=== PATIENT | male | born 1960 | race American Indian/Alaskan Native ===

== ENCOUNTER 2018-04-25 21:38 | Inpatient (IN) | payer OTHER ==
[2018-04-25] MEDS ORDERED: NACL 0.9% 1000 ML 2,000 ML IV ONE (21:53)
[2018-04-25] MEDS ORDERED: PEPCID IV ONE (21:53)
--- NOTE | 2018-04-25 21:54 | Emergency Department Report ---
ED General Adult HPI - General Chief complaint: Seizure Stated complaint: SEIZURE Time Seen by Provider: 04/25/18 21:44 Source: patient, family, EMS (ems notes not available at time of chart dictation), RN notes reviewed Mode of arrival: Stretcher Limitations: Other (patient has incomplete recollection of the events that happened today.) - History of Present Illness Initial comments: This is a 57-year-old gentleman. The patient is unknown to this provider previously. He can't recall the name of his primary care doctor. He has a history of hypertension. Patient was at home today, and apparently had an episode of syncope, which was followed by a seizure. This was seen by his family in partial contacts. They did not see the complete event. Patient reports no headache, but indicates that his head feels funny, denies neck pain, chest pain, reports abdominal pain, which is epigastric, and is not able to otherwise indicates the qualitative nature of the pain, and indicates no radiation, exacerbation or relieving factors. He denies hematemesis, bright red blood per rectum, and denies DVT, pulmonary embolus risk factors. He denies midline neck pain, chest pain, lower extremity pain, weakness, numbness. He feels quite anxious. As far the patient can recall, this is never happened to him. As per family, he was outside the bedroom door, they heard the fall, and sore him seizing. They do not know how long the seizure lasted for. No indication of intoxicants as per family and patient. -: Gradual, Sudden Location: abdomen (abdominal pain has been present for a day or 2.) Radiation: other Severity scale (0 -10): 0 Quality: other Consistency: other Improves with: other Worsens with: other Associated Symptoms: confusion, malaise, seizure, syncope, weakness. denies: chest pain, cough, diaphoresis, fever/chills, headaches, loss of appetite, nausea/vomiting, rash, shortness of breath - Related Data Allergies Allergy/AdvReac Type Severity Reaction Status Date / Time No Known Allergies Allergy Unverified 04/25/18 21:45 ED Review of Systems ROS: Stated complaint: SEIZURE Other details as noted in HPI Constitutional: malaise. denies: fever Eyes: denies: eye discharge ENT: denies: epistaxis Respiratory: denies: cough Cardiovascular: syncope. denies: chest pain Gastrointestinal: abdominal pain. denies: vomiting Genitourinary: denies: dysuria Musculoskeletal: denies: arthralgia, myalgia Neurological: confusion. denies: headache Psychiatric: anxiety ED Past Medical Hx - Past Medical History Previous Medical History?: Yes Hx Hypertension: Yes - Surgical History Past Surgical History?: No - Social History Smoking Status: Current Every Day Smoker Substance Use Type: None ED Physical Exam - General Limitations: No Limitations, Other (patient has incomplete recollection of the event) General appearance: alert, anxious - Head Head exam: Present: atraumatic, normocephalic - Eye Eye exam: Present: normal appearance, PERRL, EOMI, other (visual acuity intact to finger counting, color perception, reading at a close distance). Absent: nystagmus - ENT ENT exam: Present: normal exam, normal orophraynx, mucous membranes moist, other - Neck Neck exam: Present: normal inspection, full ROM. Absent: tenderness, men ingismus - Respiratory Respiratory exam: Present: normal lung sounds bilaterally. Absent: respiratory distress - Cardiovascular Cardiovascular Exam: Present: normal rhythm, tachycardia, normal heart sounds. Absent: bradycardia, irregular rhythm, systolic murmur, diastolic murmur, rubs, gallop - GI/Abdominal GI/Abdominal exam: Present: soft. Absent: distended, tenderness, guarding, rebound, rigid, pulsatile mass - Rectal Rectal exam: Present: deferred - Extremities Exam Extremities exam: Present: normal inspection, full ROM, other (2+ pulses noted in the bilateral upper, lower extremities. Compartments soft. No long bony tenderness. The pelvis is stable.). Absent: pedal edema, joint swelling, calf tenderness - Back Exam Back exam: Present: normal inspection, full ROM. Absent: tenderness, CVA tenderness (R), paraspinal tenderness, vertebral tenderness - Neurological Exam Neurological exam: Present: alert, oriented X3, CN II-XII intact, other (Extraocular movements intact. Tongue midline. No facial droop. Facial sensation intact to light touch in the V1, V2, V3 distribution bilaterally. 5 and 5 strength in 4 extremities.. Sensation is intact to light touch in 4 extremities.). Absent: motor sensory deficit - Psychiatric Psychiatric exam: Present: anxious - Skin Skin exam: Present: warm, dry, intact, normal color. Absent: rash ED Course Vital Signs 04/25/18 04/25/18 04/25/18 21:36 21:39 21:46 Temperature 98.3 F Pulse Rate 126 H 107 H 115 H Respiratory 21 18 28 H Rate Blood Pressure Blood Pressure 177/98 [Left] O2 Sat by Pulse 98 98 Oximetry 04/25/18 04/25/18 04/25/18 22:08 22:16 22:30 Temperature Pulse Rate Respiratory Rate Blood Pressure 177/98 177/98 177/98 Blood Pressure [Left] O2 Sat by Pulse 97 99 99 Oximetry - Reevaluation(s) Reevaluation #1: 04/25/18 22:26 Differential diagnosis, including but not limited to: Acute coronary syndrome, vagal event, structural cardiac disease, pulmonary embolus, AAA, aortic disease, perforated viscus, orthostasis, electrolyte derangement, thyroid derangement, intracranial injury Assessment and plan: 57-year-old gentleman with an episode of unprovoked syncope, followed by seizure. He is clinically sober at this time, with a [place] Coma Scale of 15, with an NIH score of 0.Patient is clinically sober at this time. The cervical spine is cleared through nexus and bhutanese c spine rule he is tachycardic, but not hypoxic. His abdomen is soft and benign. He has no abdominal tenderness. Given episode of unprovoked syncope and tachycardia, we will obtain CT scan of the chest to exclude pulmonary embolus, aortic disease. Clinically, I currently doubt acute intra-abdominal process, but we will obtain a CT scan of his abdomen and pelvis to exclude AAA, retroperitoneal hematoma, other acute disease or pathology. Clinically doubt significant intracranial lesion at this time, but given the lack of complete recollection and history of seizure, we will obtain noncontrast CT scan of the brain. Patient will be given IV fluids, and Pepcid for his abdominal pain. His EKG is morphologically abnormal without prior for comparison, but not consistent with an ST elevation myocardial infarction. Recommended admission to the hospital for further evaluation of unprovoked seizure versus syncope, once initial diagnostics have resulted, assuming no emergent diseases discovered or elucidated that would require transfer to another facility. This is discussed with the patient and family, who have verbalized understanding, and are amenable to this plan of care. Reevaluation #2: 04/25/18 23:[address] scan of the brain is negative for acute disease. Reevaluation #3: 04/26/18 02:24 CT scan of the chest shows no pulmonary embolus. Pneumonia is suggested. Clinically, I doubt pneumonia. However, given leukocytosis (which I suspect is a stress reaction), tachycardia, which I suspect is secondary to anxiety, tachypnea, which I suspect is secondary to anxiety, patient will be given additional fluids, and he will be covered empirically with ceftriaxone and azithromycin. Patient has been resting comfortably in the emergency room for a few hours, without clinical decompensation, without recurrent convulsive event or syncopal event. Nevertheless, case is presented to the Hospital physician, Dr. Aristides Echols, who has accepted the patient to the medical service. Please note that patient received antibiotics more than 3 hours after presentation, as bacteremia or bacterial infection was not suspected based off of his initial presentation, and I suspect the CAT scan interpretation is not supported overall by his clinical presentation. Reevaluation #4: 04/26/18 02:37 CT scan of the abdomen and pelvis suggests gastritis, and possible colitis. Without diarrhea or vomiting, I clinically doubt colitis. Nevertheless, ceftriaxone should provide adequate coverage for intra-abdominal infection. I will defer to the inpatient team to further manage the patient. ED Medical Decision Making - Lab Data Result diagrams: 04/25/18 22:34 04/25/18 22:34 Vital Signs 04/25/18 04/25/18 21:39 21:46 Temperature 98.3 F Pulse Rate 107 H Respiratory 18 18 Rate Blood Pressure 177/98 [Left] O2 Sat by Pulse 98 98 Oximetry Temp Pulse Resp BP Pulse Ox 98.3 F 107 H 18 177/98 98 04/25/18 21:39 04/25/18 21:39 04/25/18 21:46 04/25/18 21:39 04/25/18 21:46 - EKG Data -: EKG Interpreted by Me EKG shows normal: sinus rhythm Rate: tachycardia - EKG Data When compared to previous EKG there are: previous EKG unavailable 04/25/18 22:29 Sinus tachycardia, 114 beats per minutes, normal axis, normal intervals, left ventricular hypertrophy, poor R-wave progression, atrial enlargement, abnormal EKG, this is not consistent with ST elevation myocardial infarction. There is no prior EKG available for comparison. - Radiology Data Radiology results: pending, report reviewed, image reviewed Critical care attestation.: If time is entered above; I have spent that time in minutes in the direct care of this critically ill patient, excluding procedure time. ED Disposition Clinical Impression: History of syncope, History of seizure, Systemic inflammatory response syndrome Disposition: OP ADMIT IP TO THIS HOSP Is pt being admited?: Yes Condition: Stable Referrals: MILO MOREIRA MD [Primary Care Provider] - 3-5 Days
--- NOTE | 2018-04-25 22:24 | Cat Scan Report ---
FINAL REPORT PROCEDURE: CT head without contrast. TECHNIQUE: Computerized tomography of the head was performed without contrast material. HISTORY: Seizure like activity. COMPARISON: No prior studies are available for comparison. FINDINGS: The ventricles are normal in size. The waldrop matter and white matter appear normal. There are no mass lesions. There is no intracranial hemorrhage. The calvarium appears intact. The mastoid air cells are clear as far as visualized. There is a small mucous retention cyst in the right maxillary sinus. IMPRESSION: Normal study of the brain.
[2018-04-25 22:53] LABS: Basophils # (Auto) 0.1 K/mm3 (0.0-0.1); Eosinophils % (Auto) 0.1 % (0.0-4.3); Hemoglobin 17.4 gm/dl (11.8-15.2); Lymphocytes % (Auto) 6.9 % (13.4-35.0); Mean Corpuscular HGB Conc 33 % (32-34); Mean Corpuscular Volume 100 fl (84-94); Monocytes # (Auto) 0.6 K/mm3 (0.0-0.8); Platelet Count 291 K/mm3 (140-440); Red Blood Count 5.21 M/mm3 (3.65-5.03)
[2018-04-25 23:10] LABS: INR 1.07 (0.87-1.13)
[2018-04-25 23:13] LABS: Alanine Aminotransferase 15 units/L (7-56); Albumin 4.4 g/dL (3.9-5); BUN/Creatinine Ratio 8; Blood Urea Nitrogen 12 mg/dL (9-20); Calcium 9.6 mg/dL (8.4-10.2); Hemolysis Index 22
[2018-04-25 23:22] LABS: Bilirubin,Direct < 0.2 mg/dL (0-0.2)
[2018-04-26 00:09] LABS: Bilirubin,Urine NEG (Negative); Blood,Urine SM (Negative); Color,Urine Straw (Yellow); Mucus,Urine FEW /HPF; Urobilinogen,Urine < 2.0 mg/dL (<2.0)
[2018-04-26 00:17] LABS: Amphetamine Screen,Urine PRESUMPTIVE NEGATIVE; Benzodiazepines Screen,Urine PRESUMPTIVE NEGATIVE; Cocaine Screen,Urine PRESUMPTIVE NEGATIVE; Methadone Screen,Urine PRESUMPTIVE NEGATIVE; Opiate Screen,Urine PRESUMPTIVE NEGATIVE
[2018-04-26 00:28] LABS: Cannabinoid Screen,Urine PRESUMPTIVE POSITIVE
--- NOTE | 2018-04-26 01:42 | Cat Scan Report ---
FINAL REPORT EXAM: CT ANGIO CHEST HISTORY: Unexplained syncope, tachycardic. TECHNIQUE: CT evaluations performed of the chest following IV contrast administration time for evalu ation of the pulmonary arterial system. Coronal and sagittal imaging was also provided for interpre tation. PRIORS: None. FINDINGS: Thoracic inlet: Unremarkable. Lungs: Left greater than right upper lobe parenchymal opacities. No pleural effusion. Heart: Mild enlargement of the left ventricle. No pericardial effusion. Pulmonary arteries: No focal filling defect. No findings of pulmonary artery hypertension. Subsegment al branches are incompletely evaluated. Mediastinum: No adenopathy. Upper abdomen: Unremarkable. IMPRESSION: Left greater than right upper lobe parenchymal opacities which may represent infiltrate or less likel y pulmonary edema. No pulmonary embolism. Mild cardiac enlargement.
[2018-04-26] MEDS ORDERED: ROCEPHIN/NS 1 GM/50 ML 1 GM/50 ML BAG IV ONE ×2 (01:45→03:58)
[2018-04-26] MEDS ORDERED: ZITHROMAX PO ONE (01:45)
[2018-04-26] MEDS ORDERED: NACL 0.9% 500 ML 500 ML IV ONE (01:46)
--- NOTE | 2018-04-26 02:36 | Cat Scan Report ---
FINAL REPORT PROCEDURE: CT ABDOMEN PELVIS W CON TECHNIQUE: Computerized axial tomography of the abdomen and pelvis was performed after the IV inject ion of iodinated nonionic contrast. HISTORY: unexplained syncope, tachycardic, abdominal pain COMPARISON: No prior studies are available for comparison. FINDINGS: Visualized lower thorax: No significant abnormality. Liver: Normal size and attenuation. There is a 2.3 centimeter enhancing lesion in the posterior segme nt of the right lobe of the liver. This could be an atypical hemangioma or possibly an adenoma. Malig tyrone cannot be entirely excluded. Further evaluation with MRI may be helpful. Spleen: Normal size and attenuation. Gallbladder and biliary system: Normal. Pancreas: Normal. Adrenals: Normal. Kidneys: Normal. GI tract: There is edematous thickening of the stomach antrum suggesting possible gastritis. Evaluati on of the bowel is limited without contrast but there appears to be thickening of the colon which cou ld indicate colitis. There is no obstruction. The small bowel is unremarkable. The appendix is not di scretely identified.. Lymph nodes and mesentery: Normal. Vasculature: Normal. Bladder: Bladder wall is thickened. There is no discrete mass. There are no bladder stones.. Reproductive organs: Normal. Peritoneum: There is no ascites or free air, abscess or adenopathy.. Musculoskeletal structures: No significant abnormality. Other: None. IMPRESSION: There is a 2.3 centimeter enhancing lesion in the posterior segment of the right lobe of the liver. T his could be an atypical hemangioma or possibly an adenoma. Malignancy cannot be entirely excluded. F urther evaluation with MRI may be helpful. There is edematous thickening of the stomach antrum suggesting possible gastritis. Evaluation of the bowel is limited without contrast but there appears to be thickening of the colon w hich could indicate colitis. There is no obstruction. The small bowel is unremarkable. The appendix is not discretely identified.. The urinary bladder wall is thickened. There is no discrete mass. There are no bladder stones.. There is no ascites or free air, abscess or adenopathy..
[2018-04-26] MEDS ORDERED: TYLENOL PO PRN (02:43)
[2018-04-26] MEDS ORDERED: SODIUM CHLORIDE FLUSH SYRINGE 10 ML IV PRN (02:43)
--- NOTE | 2018-04-26 03:40 | History and Physical Report ---
History of Present Illness Date of examination: 04/26/18 Date of admission: 04/26/18 02:26 Chief complaint: Syncope and seizure History of present illness: Pt is a 57 year old male with PMHx of hypertension who was taking to the ER from home after an episode of syncope follows by seizure activity a few mins prior to arrival. On arrival to the ER pt was allert and oriented, denies prior episodes of seizure activity, he denies consumption of alcohol, he admit to brief episode of confusion before the seizure. Pt's syncopal episode was witnessed by pt's who states that he passed out and started seizing. Pt states that his illness started the day before, he was feeling sick, he reports epigastric pain, feeling cold and minor cough. Patient denies ill-contact, denies headache, denies dizziness, denies photophobia, denies neck pain, chest pain. Pt states that the abdominal pain was minor, he denies nausea, denies vomiting, denies diarrhea, denies any radiation of the abdominal pain. In the ER, pt had a CT scan of the rain that was normal, CT scan of the chest showed bilateral opacities which represents infiltrate or pulmonary edema, CT scan of the abdomen shows 2.5 cms lesion posterior segment of the right lobe of the liver (hemangioma vrs adenoma) gastric and colonic wall thickening suggesting gastritis and colitis. Pt was admitted for further evaluation and treatment. Past History Past Medical History: hypertension Past Surgical History: No surgical history Social history: alcohol abuse (quit drinking 6 year ago) Family history: no significant family history Medications and Allergies Allergies Allergy/AdvReac Type Severity Reaction Status Date / Time No Known Allergies Allergy Verified 04/26/18 02:55 Active Meds: Active Medications Acetaminophen (Tylenol) 650 mg PO Q4H PRN PRN Reason: Pain MILD(1-3)/Fever >100.5/ZAMAN Albuterol/Ipratropium (Duoneb *Not For Prn Use*) 1 ampul IH Q6HRT KEVIN Budesonide (Pulmicort) 0.5 mg IH Q12HRT [facility] Famotidine (Pepcid) 20 mg IV BID KEVIN Azithromycin 500 mg/ Sodium (Chloride) 250 mls @ 250 mls/hr IV Q24H KEVIN; Protocol Ceftriaxone Sodium (Rocephin/Ns 2 Gm/100 Ml) 2 gm in 100 mls @ 200 mls/hr IV Q24H KEVIN; Protocol Sodium Chloride (Nacl 0.9% 1000 Ml) 1,000 mls @ 100 mls/hr IV DIRECT KEVIN Ondansetron HCl (Zofran) 4 mg IV Q8H PRN PRN Reason: Nausea And Vomiting Sodium Chloride (Sodium Chloride Flush Syringe 10 Ml) 10 ml IV BID KEVIN Sodium Chloride (Sodium Chloride Flush Syringe 10 Ml) 10 ml IV PRN PRN PRN Reason: LINE FLUSH Review of Systems Cardiovascular: shortness of breath Gastrointestinal: abdominal pain Exam - Constitutional Vitals: Temp Pulse Resp BP Pulse Ox 98.3 F 115 H 28 H 177/98 99 04/25/18 21:39 04/25/18 21:46 04/25/18 21:46 04/25/18 22:30 04/25/18 22:30 General appearance: Present: no acute distress - EENT Eyes: Present: EOM intact ENT: hearing intact - Neck Neck: Present: normal ROM - Respiratory Respiratory effort: normal Respiratory: bilateral: diminished - Cardiovascular Rhythm: regular Heart Sounds: Present: S1 & S2 - Extremities Extremities: no ischemia, No edema - Abdominal General gastrointestinal: Present: soft, tender Male genitourinary: Present: deferred - Rectal Rectal Exam: deferred - Integumentary Integumentary: Present: warm, dry - Musculoskeletal Musculoskeletal: strength equal bilaterally - Psychiatric Psychiatric: appropriate mood/affect - Neurologic Neurologic: moves all extremities Results - Labs CBC & Chem 7: 04/25/18 22:34 04/25/18 22:34 Labs: Laboratory Last Values WBC 14.3 K/mm3 (4.5-11.0) H 04/25/18 22:34 RBC 5.21 M/mm3 (3.65-5.03) H 04/25/18 22:34 Hgb 17.4 gm/dl (11.8-15.2) H 04/25/18 22:34 Hct 52.0 % (35.5-45.6) H 04/25/18 22:34 MCV 100 fl (84-94) H 04/25/18 22:34 MCH 33 pg (28-32) H 04/25/18 22:34 MCHC 33 % (32-34) 04/25/18 22:34 RDW 14.0 % (13.2-15.2) 04/25/18 22:34 Plt Count 291 K/mm3 (140-440) 04/25/18 22:34 Lymph % (Auto) 6.9 % (13.4-35.0) L 04/25/18 22:34 [place] % (Auto) 4.0 % (0.0-7.3) 04/25/18 22:34 Eos % (Auto) 0.1 % (0.0-4.3) 04/25/18 22:34 Baso % (Auto) 1.0 % (0.0-1.8) 04/25/18 22:34 Lymph # 1.0 K/mm3 (1.2-5.4) L 04/25/18 22:34 [place] # 0.6 K/mm3 (0.0-0.8) 04/25/18 22:34 Eos # 0.0 K/mm3 (0.0-0.4) 04/25/18 22:34 Baso # 0.1 K/mm3 (0.0-0.1) 04/25/18 22:34 Seg Neutrophils % 88.0 % (40.0-70.0) H 04/25/18 22:34 Seg Neutrophils # 12.6 K/mm3 (1.8-7.7) H 04/25/18 22:34 PT 14.3 Sec. (12.2-14.9) 04/25/18 22:34 INR 1.07 (0.87-1.13) 04/25/18 22:34 Sodium 135 mmol/L (137-145) L 04/25/18 22:34 Potassium 4.1 mmol/L (3.6-5.0) 04/25/18 22:34 Chloride 100.8 mmol/L (98-107) 04/25/18 22:34 Carbon Dioxide 20 mmol/L (22-30) L 04/25/18 22:34 Anion Gap 18 mmol/L 04/25/18 22:34 BUN 12 mg/dL (9-20) 04/25/18 22:34 Creatinine 1.5 mg/dL (0.8-1.5) 04/25/18 22:34 Estimated GFR 59 ml/min 04/25/18 22:34 BUN/Creatinine Ratio 8 % 04/25/18 22:34 Glucose 185 mg/dL (75-100) H 04/25/18 22:34 Lactic Acid 1.60 mmol/L (0.7-2.0) 04/26/18 01:52 Calcium 9.6 mg/dL (8.4-10.2) 04/25/18 22:34 Magnesium 2.20 mg/dL (1.7-2.3) 04/25/18 22:34 Total Bilirubin 0.70 mg/dL (0.1-1.2) 04/25/18 22:34 Direct Bilirubin < 0.2 mg/dL (0-0.2) 04/25/18 22:34 Indirect Bilirubin 0.5 mg/dL 04/25/18 22:34 AST 22 units/L (5-40) 04/25/18 22:34 ALT 15 units/L (7-56) 04/25/18 22:34 Alkaline Phosphatase 84 units/L (35-129) 04/25/18 22:34 Total Creatine Kinase 155 units/L (55-170) 04/25/18 22:34 Troponin T < 0.010 ng/mL (0.00-0.029) 04/25/18 22:34 Total Protein 7.7 g/dL (6.3-8.2) 04/25/18 22:34 Albumin 4.4 g/dL (3.9-5) 04/25/18 22:34 Albumin/Globulin Ratio 1.3 % 04/25/18 22:34 Lipase 20 units/L (13-60) 04/25/18 22:34 Urine Color Straw (Yellow) 04/26/18 00:01 Urine Turbidity Clear (Clear) 04/26/18 00:01 Urine pH 5.0 (5.0-7.0) 04/26/18 00:01 Ur Specific [place] 1.008 (1.003-1.030) 04/26/18 00:01 Urine Protein 100 mg/dl mg/dL (Negative) 04/26/18 00:01 Urine Glucose (UA) 50 mg/dL (Negative) 04/26/18 00:01 Urine Ketones Neg mg/dL (Negative) 04/26/18 00:01 Urine Blood Sm (Negative) 04/26/18 00:01 Urine Nitrite Neg (Negative) 04/26/18 00:01 Urine Bilirubin Neg (Negative) 04/26/18 00:01 Urine Urobilinogen < 2.0 mg/dL (<2.0) 04/26/18 00:01 Ur Leukocyte Esterase Neg (Negative) 04/26/18 00:01 Urine WBC (Auto) 1.0 /HPF (0.0-6.0) 04/26/18 00:01 Urine RBC (Auto) 1.0 /HPF (0.0-6.0) 04/26/18 00:01 Urine Mucus Few /HPF 04/26/18 00:01 Salicylates < 0.3 mg/dL (2.8-20.0) L 04/25/18 22:34 Urine Opiates Screen Presumptive negative 04/26/18 00:01 Urine Methadone Screen Presumptive negative 04/26/18 00:01 Acetaminophen < 5.0 ug/mL (10.0-30.0) L 04/25/18 22:34 Ur Barbiturates Screen Presumptive negative 04/26/18 00:01 Ur Phencyclidine Scrn Presumptive negative 04/26/18 00:01 Ur Amphetamines Screen Presumptive negative 04/26/18 00:01 U Benzodiazepines Scrn Presumptive negative 04/26/18 00:01 Urine Cocaine Screen Presumptive negative 04/26/18 00:01 U Marijuana (THC) Screen Presumptive positive 04/26/18 00:01 Drugs of Abuse Note Disclamer 04/26/18 00:01 Plasma/Serum Alcohol < 0.01 % (0-0.07) 04/25/18 22:34 Assessment and Plan Assessment and plan: 1. New onset seizure 2. Bilateral pneumonia (CAP) 3. Acute gastritis and colitis 4. Acute abdominal pain (due to gastritis/colitis) 5. Liver lesion (2.3 cm) 6. Hypertension Plan: Pt is admitted to [facility] for Pneumonia CAP protocol initiated with Rocephin and Zithromax Start keppra for seizure disorder Ativan PRN for seizure activity Consult neurology for new onset seizure Continue nebulizer treatmemt PRN for SOB Pulmocort daily O2 to keep sat > 92% Pt will need GI consult for liver lesion, gastritis and colitis Resume home meds Further plan per hospital course Plan of care was d/w pt, voiced understanding Pt's condition and plan of care of care discussed with the attending plan: Advance Directives: Yes VTE prophylaxis?: Mechanical Plan of care discussed with patient/family: Yes
[2018-04-26] MEDS ORDERED: ZITHROMAX ONE (04:27)
[2018-04-26] MEDS ORDERED: ATIVAN IV PRN (05:04)
[2018-04-26] MEDS: DUONEB *Not for PRN Use IH SCH ×3 (08:18→20:10)
[2018-04-26] MEDS: PULMICORT IH SCH ×2 (08:18→20:10)
[2018-04-26] MEDS: NACL 0.9% 1000 ML 1,000 ML IV SCH ×2 (08:28→15:08)
[2018-04-26] MEDS: PEPCID IV SCH ×2 (08:28→09:37)
[2018-04-26] MEDS: ZOFRAN IV PRN (09:37)
[2018-04-26] MEDS: SODIUM CHLORIDE FLUSH SYRINGE 10 ML IV SCH ×2 (09:38→22:01)
[2018-04-26] MEDS: KEPPRA 750 MG in NACL 0.9% 100 ML IV SCH ×2 (11:28→22:41)
--- NOTE | 2018-04-26 13:34 | Progress Note ---
Assessment and Plan Assessment and plan: New-onset seizure. We will follow-up MRI, EEG and neuro consultation. Bilateral community-acquired pneumonia. Continue IV antibiotics and follow cultures. Acute gastritis/colitis. Continue antibiotics and follow up stool studies. Add Flagyl to the regimen. Acute abdominal pain. Etiology secondary to above. Liver lesion. GI consultation. Check alpha-fetoprotein. Hypertension. Continue antihypertensive medications. Total time 25 minutes and greater than 50% spent with coordination of care and counseling. History Interval history: No new issues overnight. Hospitalist Physical - Constitutional Vitals: Temp Pulse Resp BP Pulse Ox 98.0 F 76 17 137/61 98 04/26/18 07:56 04/26/18 13:00 04/26/18 08:22 04/26/18 11:48 04/26/18 11:48 General appearance: Present: no acute distress - EENT Eyes: Present: PERRL, EOM intact ENT: hearing intact, clear oral mucosa, dentition normal - Neck Neck: Present: supple, normal ROM - Respiratory Respiratory effort: normal Respiratory: bilateral: CTA - Cardiovascular Rhythm: regular Heart Sounds: Present: S1 & S2. Absent: gallop, rub - Extremities Extremities: no ischemia, No edema, Full ROM - Abdominal General gastrointestinal: soft, non-tender, non-distended, normal bowel sounds - Integumentary Integumentary: Present: clear, warm, dry - Neurologic Neurologic: CNII-XII intact, moves all extremities Results - Labs CBC & Chem 7: 04/25/18 22:34 04/25/18 22:34 Labs: Laboratory Last Values WBC 14.3 K/mm3 (4.5-11.0) H 04/25/18 22:34 RBC 5.21 M/mm3 (3.65-5.03) H 04/25/18 22:34 Hgb 17.4 gm/dl (11.8-15.2) H 04/25/18 22:34 Hct 52.0 % (35.5-45.6) H 04/25/18 22:34 MCV 100 fl (84-94) H 04/25/18 22:34 MCH 33 pg (28-32) H 04/25/18 22:34 MCHC 33 % (32-34) 04/25/18 22:34 RDW 14.0 % (13.2-15.2) 04/25/18 22:34 Plt Count 291 K/mm3 (140-440) 04/25/18 22:34 Lymph % (Auto) 6.9 % (13.4-35.0) L 04/25/18 22:34 [place] % (Auto) 4.0 % (0.0-7.3) 04/25/18 22:34 Eos % (Auto) 0.1 % (0.0-4.3) 04/25/18 22:34 Baso % (Auto) 1.0 % (0.0-1.8) 04/25/18 22:34 Lymph # 1.0 K/mm3 (1.2-5.4) L 04/25/18 22:34 [place] # 0.6 K/mm3 (0.0-0.8) 04/25/18 22:34 Eos # 0.0 K/mm3 (0.0-0.4) 04/25/18 22:34 Baso # 0.1 K/mm3 (0.0-0.1) 04/25/18 22:34 Seg Neutrophils % 88.0 % (40.0-70.0) H 04/25/18 22:34 Seg Neutrophils # 12.6 K/mm3 (1.8-7.7) H 04/25/18 22:34 PT 14.3 Sec. (12.2-14.9) 04/25/18 22:34 INR 1.07 (0.87-1.13) 04/25/18 22:34 Sodium 135 mmol/L (137-145) L 04/25/18 22:34 Potassium 4.1 mmol/L (3.6-5.0) 04/25/18 22:34 Chloride 100.8 mmol/L (98-107) 04/25/18 22:34 Carbon Dioxide 20 mmol/L (22-30) L 04/25/18 22:34 Anion Gap 18 mmol/L 04/25/18 22:34 BUN 12 mg/dL (9-20) 04/25/18 22:34 Creatinine 1.5 mg/dL (0.8-1.5) 04/25/18 22:34 Estimated GFR 59 ml/min 04/25/18 22:34 BUN/Creatinine Ratio 8 % 04/25/18 22:34 Glucose 185 mg/dL (75-100) H 04/25/18 22:34 Lactic Acid 1.60 mmol/L (0.7-2.0) 04/26/18 01:52 Calcium 9.6 mg/dL (8.4-10.2) 04/25/18 22:34 Magnesium 2.20 mg/dL (1.7-2.3) 04/25/18 22:34 Total Bilirubin 0.70 mg/dL (0.1-1.2) 04/25/18 22:34 Direct Bilirubin < 0.2 mg/dL (0-0.2) 04/25/18 22:34 Indirect Bilirubin 0.5 mg/dL 04/25/18 22:34 AST 22 units/L (5-40) 04/25/18 22:34 ALT 15 units/L (7-56) 04/25/18 22:34 Alkaline Phosphatase 84 units/L (35-129) 04/25/18 22:34 Total Creatine Kinase 155 units/L (55-170) 04/25/18 22:34 Troponin T < 0.010 ng/mL (0.00-0.029) 04/25/18 22:34 Total Protein 7.7 g/dL (6.3-8.2) 04/25/18 22:34 Albumin 4.4 g/dL (3.9-5) 04/25/18 22:34 Albumin/Globulin Ratio 1.3 % 04/25/18 22:34 Lipase 20 units/L (13-60) 04/25/18 22:34 Urine Color Straw (Yellow) 04/26/18 00:01 Urine Turbidity Clear (Clear) 04/26/18 00:01 Urine pH 5.0 (5.0-7.0) 04/26/18 00:01 Ur Specific [place] 1.008 (1.003-1.030) 04/26/18 00:01 Urine Protein 100 mg/dl mg/dL (Negative) 04/26/18 00:01 Urine Glucose (UA) 50 mg/dL (Negative) 04/26/18 00:01 Urine Ketones Neg mg/dL (Negative) 04/26/18 00:01 Urine Blood Sm (Negative) 04/26/18 00:01 Urine Nitrite Neg (Negative) 04/26/18 00:01 Urine Bilirubin Neg (Negative) 04/26/18 00:01 Urine Urobilinogen < 2.0 mg/dL (<2.0) 04/26/18 00:01 Ur Leukocyte Esterase Neg (Negative) 04/26/18 00:01 Urine WBC (Auto) 1.0 /HPF (0.0-6.0) 04/26/18 00:01 Urine RBC (Auto) 1.0 /HPF (0.0-6.0) 04/26/18 00:01 Urine Mucus Few /HPF 04/26/18 00:01 Salicylates < 0.3 mg/dL (2.8-20.0) L 04/25/18 22:34 Urine Opiates Screen Presumptive negative 04/26/18 00:01 Urine Methadone Screen Presumptive negative 04/26/18 00:01 Acetaminophen < 5.0 ug/mL (10.0-30.0) L 04/25/18 22:34 Ur Barbiturates Screen Presumptive negative 04/26/18 00:01 Ur Phencyclidine Scrn Presumptive negative 04/26/18 00:01 Ur Amphetamines Screen Presumptive negative 04/26/18 00:01 U Benzodiazepines Scrn Presumptive negative 04/26/18 00:01 Urine Cocaine Screen Presumptive negative 04/26/18 00:01 U Marijuana (THC) Screen Presumptive positive 04/26/18 00:01 Drugs of Abuse Note Disclamer 04/26/18 00:01 Plasma/Serum Alcohol < 0.01 % (0-0.07) 04/25/18 22:34
[2018-04-26] MEDS: FLAGYL 500 MG/100 ML 500 MG/100 ML BAG IV SCH ×2 (15:08→21:55)
--- NOTE | 2018-04-26 15:27 | Gastroenterology Consultation ---
<YOHAN SRINIVASAN - Last Filed: 04/26/18 15:39> History of Present Illness - Reason for Consult Consult date: 04/26/18 colitis, liver lesion Requesting physician: ASHISH GIVENS - History of Present Illness Patient is a 57 y/o male with PMH of HTN who presented to ED due to syncopal episode followed by seizure (new-onset). He also had c/o epigastric pain and cough. Upon admission, head CT negative, chest CTA showed pneumonia (no evidence of PE), and abd CT showed gastritis/colitis/liver lesion to which GI has been consulted. Neurology consult pending. This afternoon patient was resting in bed w/o acute distress with family at bedside. Noted to A&O x 3. Reports epigastic pain that began yesterday. Pain is non-radiating and now improving. No exacerbating/relieving factors. Also had N/V yesterday with non-bloody bile colored emesis that is also improving. Has a hx of chronic loose non-bloody stools with BMs x 2-5/day (exacerbated with stress/anxiety per ) with no recent change in baseline. Admits to his weight fluctuating but states it has gradually declined over the past year (unable to give amount). Denies fever, CP, SOB, dysphagia, signs of bleeding, jaundice, diarrhea, or constipation. Has a remote hx of heavy alcohol use but no known liver disease. No NSAID use or hx of PUD. No recent travel, abx therapy, or ill contacts. No hx or Fhx of IBD or GI cancers. No previous EGD/colonoscopy. Past History Past Medical History: hypertension Past Surgical History: No surgical history Social history: smoking, alcohol abuse (quit drinking 6 year ago) Family history: no significant family history Medications and Allergies Allergies Allergy/AdvReac Type Severity Reaction Status Date / Time No Known Allergies Allergy Verified 04/26/18 02:55 Home Medications Medication Instructions Recorded Confirmed Last Taken Type No Known Home Medications [No 04/26/18 04/26/18 Unknown History Reported Home Medications] Active Meds: Active Medications Acetaminophen (Tylenol) 650 mg PO Q4H PRN PRN Reason: Pain MILD(1-3)/Fever >100.5/ZAMAN Albuterol/Ipratropium (Duoneb *Not For Prn Use*) 1 ampul IH Q6HRT [facility] Last Admin: 04/26/18 13:59 Dose: 1 ampul Documented by: Budesonide (Pulmicort) 0.5 mg IH Q12HRT [facility] Last Admin: 04/26/18 08:18 Dose: 0.5 mg Documented by: Famotidine (Pepcid) 20 mg IV BID [facility] Last Admin: 04/26/18 09:37 Dose: 20 mg Documented by: Azithromycin 500 mg/ Sodium (Chloride) 250 mls @ 250 mls/hr IV Q24H [facility]; Protocol Ceftriaxone Sodium (Rocephin/Ns 2 Gm/100 Ml) 2 gm in 100 mls @ 200 mls/hr IV Q24H [facility]; Protocol Sodium Chloride (Nacl 0.9% 1000 Ml) 1,000 mls @ 100 mls/hr IV DIRECT [facility] Last Admin: 04/26/18 15:08 Dose: 100 mls/hr Documented by: Levetiracetam 750 mg/ Sodium (Chloride) 107.5 mls @ 400 mls/hr IV Q12HR [facility] Last Admin: 04/26/18 11:28 Dose: 400 mls/hr Documented by: Metronidazole (Flagyl 500 Mg/100 Ml) 500 mg in 100 mls @ 100 mls/hr IV Q8HR [facility]; Protocol Last Admin: 04/26/18 15:08 Dose: 100 mls/hr Documented by: Lorazepam (Ativan) 1 mg IV Q1H PRN PRN Reason: Seizures Ondansetron HCl (Zofran) 4 mg IV Q8H PRN PRN Reason: Nausea And Vomiting Last Admin: 04/26/18 09:37 Dose: 4 mg Documented by: Sodium Chloride (Sodium Chloride Flush Syringe 10 Ml) 10 ml IV BID [facility] Last Admin: 04/26/18 09:38 Dose: 10 ml Documented by: Sodium Chloride (Sodium Chloride Flush Syringe 10 Ml) 10 ml IV PRN PRN PRN Reason: LINE FLUSH medications reviewed/updated as required Review of Systems - Review of Systems Gastrointestinal: abdominal pain (epigastric), nausea, vomiting Exam - Constitutional Vital Signs: Temp Pulse Resp BP Pulse Ox 98.0 F 90 17 137/61 98 04/26/18 07:56 04/26/18 14:00 04/26/18 14:00 04/26/18 11:48 04/26/18 11:48 General appearance: no acute distress - EENT Eyes: PERRL, EOM intact ENT: hearing intact - Respiratory Respiratory: bilateral: CTA (anterior) - Cardiovascular Rhythm: regular Heart Sounds: Present: S1 & S2 - Gastrointestinal General gastrointestinal: Present: soft, tender (slight TTP in epigastric area), non-distended, normal bowel sounds - Neurologic Neurological: alert and oriented x3 - Labs CBC & Chem 7: 04/25/18 22:34 04/25/18 22:34 Lab Results: Laboratory Results - last 24 hr 04/25/18 04/25/18 04/25/18 22:34 22:34 22:34 WBC 14.3 H RBC 5.21 H Hgb 17.4 H Hct 52.0 H MCV 100 H MCH 33 H MCHC 33 RDW 14.0 Plt Count 291 Lymph % (Auto) 6.9 L [place] % (Auto) 4.0 Eos % (Auto) 0.1 Baso % (Auto) 1.0 Lymph # 1.0 L [place] # 0.6 Eos # 0.0 Baso # 0.1 Seg Neutrophils % 88.0 H Seg Neutrophils # 12.6 H PT 14.3 INR 1.07 Sodium 135 L Potassium 4.1 Chloride 100.8 Carbon Dioxide 20 L Anion Gap 18 BUN 12 Creatinine 1.5 Estimated GFR 59 BUN/Creatinine Ratio 8 Glucose 185 H Lactic Acid Calcium 9.6 Magnesium 2.20 Total Bilirubin 0.70 Direct Bilirubin < 0.2 Indirect Bilirubin 0.5 AST 22 ALT 15 Alkaline Phosphatase 84 Total Creatine Kinase 155 Troponin T < 0.010 Total Protein 7.7 Albumin 4.4 Albumin/Globulin Ratio 1.3 Lipase 20 Urine Color Urine Turbidity Urine pH Ur Specific [place] Urine Protein Urine Glucose (UA) Urine Ketones Urine Blood Urine Nitrite Urine Bilirubin Urine Urobilinogen Ur Leukocyte Esterase Urine WBC (Auto) Urine RBC (Auto) Urine Mucus Salicylates Urine Opiates Screen Urine Methadone Screen Acetaminophen Ur Barbiturates Screen Ur Phencyclidine Scrn Ur Amphetamines Screen U Benzodiazepines Scrn Urine Cocaine Screen U Marijuana (THC) Screen Drugs of Abuse Note Plasma/Serum Alcohol 04/25/18 04/25/18 04/25/18 22:34 22:34 22:34 WBC RBC Hgb Hct MCV MCH MCHC RDW Plt Count Lymph % (Auto) [place] % (Auto) Eos % (Auto) Baso % (Auto) Lymph # [place] # Eos # Baso # Seg Neutrophils % Seg Neutrophils # PT INR Sodium Potassium Chloride Carbon Dioxide Anion Gap BUN Creatinine Estimated GFR BUN/Creatinine Ratio Glucose Lactic Acid Calcium Magnesium Total Bilirubin Direct Bilirubin Indirect Bilirubin AST ALT Alkaline Phosphatase Total Creatine Kinase Troponin T Total Protein Albumin Albumin/Globulin Ratio Lipase Urine Color Urine Turbidity Urine pH Ur Specific [place] Urine Protein Urine Glucose (UA) Urine Ketones Urine Blood Urine Nitrite Urine Bilirubin Urine Urobilinogen Ur Leukocyte Esterase Urine WBC (Auto) Urine RBC (Auto) Urine Mucus Salicylates < 0.3 L Urine Opiates Screen Urine Methadone Screen Acetaminophen < 5.0 L Ur Barbiturates Screen Ur Phencyclidine Scrn Ur Amphetamines Screen U Benzodiazepines Scrn Urine Cocaine Screen U Marijuana (THC) Screen Drugs of Abuse Note Plasma/Serum Alcohol < 0.01 04/26/18 04/26/18 04/26/18 00:01 00:01 01:52 WBC RBC Hgb Hct MCV MCH MCHC RDW Plt Count Lymph % (Auto) [place] % (Auto) Eos % (Auto) Baso % (Auto) Lymph # [place] # Eos # Baso # Seg Neutrophils % Seg Neutrophils # PT INR Sodium Potassium Chloride Carbon Dioxide Anion Gap BUN Creatinine Estimated GFR BUN/Creatinine Ratio Glucose Lactic Acid 1.60 Calcium Magnesium Total Bilirubin Direct Bilirubin Indirect Bilirubin AST ALT Alkaline Phosphatase Total Creatine Kinase Troponin T Total Protein Albumin Albumin/Globulin Ratio Lipase Urine Color Straw Urine Turbidity Clear Urine pH 5.0 Ur Specific [place] 1.008 Urine Protein 100 mg/dl Urine Glucose (UA) 50 Urine Ketones Neg Urine Blood Sm Urine Nitrite Neg Urine Bilirubin Neg Urine Urobilinogen < 2.0 Ur Leukocyte Esterase Neg Urine WBC (Auto) 1.0 Urine RBC (Auto) 1.0 Urine Mucus Few Salicylates Urine Opiates Screen Presumptive negative Urine Methadone Screen Presumptive negative Acetaminophen Ur Barbiturates Screen Presumptive negative Ur Phencyclidine Scrn Presumptive negative Ur Amphetamines Screen Presumptive negative U Benzodiazepines Scrn Presumptive negative Urine Cocaine Screen Presumptive negative U Marijuana (THC) Screen Presumptive positive Drugs of Abuse Note Disclamer Plasma/Serum Alcohol Assessment and Plan 1.epigastric pain/gastritis seen on CT 2.N/V -improving -start on PPI -abd U/S -no plans for EGD at this time, consider based on clinical course -continue supportive care 2.colitis seen on CT -likely incidental finding given history -stool studies -continue empiric antibiotics and supportive care -no plans for colonoscopy at this time-screening colonoscopy as outpatient 3.liver lesion -LFTs and lipase WNL -CT revealed 2.3cm lesion in the posterior segment of the right lobe of the liver (atypical hemangioma vs adenoma) -AFP pending -will order MRI for further evaluation -will follow 4.New-onset seizure -heat CT negative -neurology consult pending 5.pneumonia -on antibiotics -management per primary team 6.HTN <JESSE FIERRO R - Last Filed: 04/27/18 15:18> Medications and Allergies Active Meds: Active Medications Acetaminophen (Tylenol) 650 mg PO Q4H PRN PRN Reason: Pain MILD(1-3)/Fever >100.5/ZAMAN Albuterol/Ipratropium (Duoneb *Not For Prn Use*) 1 ampul IH Q6HRT [facility] Last Admin: 04/27/18 13:19 Dose: Not Given Documented by: Budesonide (Pulmicort) 0.5 mg IH Q12HRT [facility] Last Admin: 04/27/18 08:32 Dose: 0.5 mg Documented by: Azithromycin 500 mg/ Sodium (Chloride) 250 mls @ 250 mls/hr IV Q24H [facility]; Protocol Last Admin: 04/26/18 21:54 Dose: 250 mls/hr Documented by: Ceftriaxone Sodium (Rocephin/Ns 2 Gm/100 Ml) 2 gm in 100 mls @ 200 mls/hr IV Q24H [facility]; Protocol Last Admin: 04/26/18 21:54 Dose: 200 mls/hr Documented by: Sodium Chloride (Nacl 0.9% 1000 Ml) 1,000 mls @ 100 mls/hr IV DIRECT [facility] Last Admin: 04/26/18 15:08 Dose: 100 mls/hr Documented by: Levetiracetam 750 mg/ Sodium (Chloride) 107.5 mls @ 400 mls/hr IV Q12HR [facility] Last Admin: 04/27/18 11:59 Dose: 400 mls/hr Documented by: Metronidazole (Flagyl 500 Mg/100 Ml) 500 mg in 100 mls @ 100 mls/hr IV Q8HR [facility]; Protocol Last Admin: 04/27/18 14:17 Dose: 100 mls/hr Documented by: Labetalol HCl (Normodyne) 200 mg PO BID [facility] Last Admin: 04/27/18 11:59 Dose: 200 mg Documented by: Lorazepam (Ativan) 1 mg IV Q1H PRN PRN Reason: Seizures Ondansetron HCl (Zofran) 4 mg IV Q8H PRN PRN Reason: Nausea And Vomiting Last Admin: 04/27/18 08:22 Dose: 4 mg Documented by: Pantoprazole Sodium (Protonix) 40 mg IV QDAY [facility] Last Admin: 04/27/18 12:00 Dose: 40 mg Documented by: Sodium Chloride (Sodium Chloride Flush Syringe 10 Ml) 10 ml IV BID [facility] Last Admin: 04/27/18 12:00 Dose: 10 ml Documented by: Sodium Chloride (Sodium Chloride Flush Syringe 10 Ml) 10 ml IV PRN PRN PRN Reason: LINE FLUSH Exam - Constitutional Vital Signs: Temp Pulse Resp BP Pulse Ox 98.5 F 67 20 143/65 97 04/27/18 12:01 04/27/18 12:01 04/27/18 12:01 04/27/18 12:01 04/27/18 12:01 - Labs CBC & Chem 7: 04/27/18 05:03 04/27/18 05:03 Lab Results: Laboratory Results - last 24 hr 04/27/18 04/27/18 05:03 05:03 WBC 12.8 H RBC 3.98 Hgb 13.5 D Hct 39.9 D MCV 100 H MCH 34 H MCHC 34 RDW 13.8 Plt Count 212 Lymph % (Auto) 27.8 [place] % (Auto) 8.9 H Eos % (Auto) 0.6 Baso % (Auto) 1.1 Lymph # 3.6 [place] # 1.1 H Eos # 0.1 Baso # 0.1 Seg Neutrophils % 61.6 Seg Neutrophils # 7.9 H Sodium 143 D Potassium 3.0 L D Chloride 108.4 H Carbon Dioxide 23 Anion Gap 15 BUN 8 L Creatinine 1.4 Estimated GFR > 60 BUN/Creatinine Ratio 6 Glucose 89 Calcium 8.1 L D Assessment and Plan Pt with 2 d hx of initial nausea and then syncopal episode. Has had epigastric discomfort. Has chronic intermittent diarrhea. Of note, has anxiety, and has been on shift boss x 8 months. Working long hours, 7d/wk, and is planning to quit job 05/19. May well have superimposed viral infectious process. Exam benign. Plan as noted.
--- NOTE | 2018-04-26 17:49 | Consultation ---
History of Present Illness Consult date: 04/26/18 Chief complaint: new onset seizure History of present illness: This is a 57 YO M who presented to the ED with new onset seizure. Pt later foun d to have bilateral p neumonia. Denied head trauma or previous seizure. says he has been experiencing some amnesia since the seizures and memory loss prior. No further seizures. Started on Keppra. Past History Past Medical History: hypertension Past Surgical History: No surgical history Social history: smoking, alcohol abuse (quit drinking 6 year ago) Family history: no significant family history Medications and Allergies Allergies Allergy/AdvReac Type Severity Reaction Status Date / Time No Known Allergies Allergy Verified 04/26/18 02:55 Home Medications Medication Instructions Recorded Confirmed Last Taken Type No Known Home Medications [No 04/26/18 04/26/18 Unknown History Reported Home Medications] Active Meds: Active Medications Acetaminophen (Tylenol) 650 mg PO Q4H PRN PRN Reason: Pain MILD(1-3)/Fever >100.5/ZAMAN Albuterol/Ipratropium (Duoneb *Not For Prn Use*) 1 ampul IH Q6HRT [facility] Last Admin: 04/26/18 13:59 Dose: 1 ampul Documented by: Budesonide (Pulmicort) 0.5 mg IH Q12HRT [facility] Last Admin: 04/26/18 08:18 Dose: 0.5 mg Documented by: Azithromycin 500 mg/ Sodium (Chloride) 250 mls @ 250 mls/hr IV Q24H [facility]; Protocol Ceftriaxone Sodium (Rocephin/Ns 2 Gm/100 Ml) 2 gm in 100 mls @ 200 mls/hr IV Q24H [facility]; Protocol Sodium Chloride (Nacl 0.9% 1000 Ml) 1,000 mls @ 100 mls/hr IV DIRECT [facility] Last Admin: 04/26/18 15:08 Dose: 100 mls/hr Documented by: Levetiracetam 750 mg/ Sodium (Chloride) 107.5 mls @ 400 mls/hr IV Q12HR [facility] Last Admin: 04/26/18 11:28 Dose: 400 mls/hr Documented by: Metronidazole (Flagyl 500 Mg/100 Ml) 500 mg in 100 mls @ 100 mls/hr IV Q8HR [facility]; Protocol Last Admin: 04/26/18 15:08 Dose: 100 mls/hr Documented by: Lorazepam (Ativan) 1 mg IV Q1H PRN PRN Reason: Seizures Ondansetron HCl (Zofran) 4 mg IV Q8H PRN PRN Reason: Nausea And Vomiting Last Admin: 04/26/18 09:37 Dose: 4 mg Documented by: Pantoprazole Sodium (Protonix) 40 mg IV QDAY [facility] Sodium Chloride (Sodium Chloride Flush Syringe 10 Ml) 10 ml IV BID [facility] Last Admin: 04/26/18 09:38 Dose: 10 ml Documented by: Sodium Chloride (Sodium Chloride Flush Syringe 10 Ml) 10 ml IV PRN PRN PRN Reason: LINE FLUSH Review of Systems Neurological: seizures, memory loss Physical Examination - Vital Signs Vital Signs: Vital Signs Pulse Resp 126 H 21 04/25/18 21:36 04/25/18 21:36 - EENT EENT: Present: mucous membranes moist - Respiratory Respiratory: Present: no respiratory distress - Cardiovascular Cardiovascular: Present: regular rate - Neurologic Cranial nerve examination: PERRL, EOMI, VFF, V1/V2/V3 grossly intact, face symmetric, tongue midline Speech examination: intact Motor examination - right side: 5/5: biceps, triceps, wrist flexion, wrist extension, fur trapper, hip flexors, knee extensors, dorsiflexion, toe extension (EHL), plantarflexion Motor examination - left side: 5/5: biceps, triceps, wrist flexion, wrist extension, fur trapper, hip flexors, knee extensors, dorsiflexion, toe extension (EHL), plantarflexion Detailed sensory examination: intact Reflex and gait examination: intact Reflexes: 1+: ankle, bicep, knee, tricep Results - Laboratory Findings CBC and BMP: 04/25/18 22:34 04/25/18 22:34 Abnormal Lab Findings: Abnormal Labs 04/25/18 04/25/18 04/25/18 22:34 22:34 22:34 WBC 14.3 H RBC 5.21 H Hgb 17.4 H Hct 52.0 H MCV 100 H MCH 33 H Lymph % (Auto) 6.9 L Lymph # 1.0 L Seg Neutrophils % 88.0 H Seg Neutrophils # 12.6 H Sodium 135 L Carbon Dioxide 20 L Glucose 185 H Salicylates < 0.3 L Acetaminophen 04/25/18 22:34 WBC RBC Hgb Hct MCV MCH Lymph % (Auto) Lymph # Seg Neutrophils % Seg Neutrophils # Sodium Carbon Dioxide Glucose Salicylates Acetaminophen < 5.0 L - Diagnostic Findings Additional findings: CT head unremarkable Assessment and Plan This is a 57 YO M with new onset seizure in the setting of bilateral pneumonia. REcommend: MRI Brain w/wo EEG Continue on Keppra for now but typically would not start AED with first time seizure unless tests were abnormal. Consider DC Keppra if tests are unremarkable Discussed driving and [place] law with seizure- he expressed understanding Continue aggressive care of his medical issues as you are doing Seizure precautions discussed Call with questions.
[2018-04-26] MEDS: PROTONIX IV SCH (18:23)
[2018-04-26] MEDS: ZITHROMAX 500 MG in NACL 0.9% 250ML 250 ML IV SCH (21:54)
[2018-04-26] MEDS: ROCEPHIN/NS 2 GM/100 ML 2 GM/100 ML BAG IV SCH (21:54)
[2018-04-27] MEDS: DUONEB *Not for PRN Use IH SCH ×4 (01:25→20:15)
[2018-04-27 05:26] LABS: Basophils # (Auto) 0.1 K/mm3 (0.0-0.1); Basophils % (Auto) 1.1 % (0.0-1.8); Eosinophils # (Auto) 0.1 K/mm3 (0.0-0.4); Eosinophils % (Auto) 0.6 % (0.0-4.3); Hematocrit 39.9 % (35.5-45.6); Hemoglobin 13.5 gm/dl (11.8-15.2); Lymphocytes # (Auto) 3.6 K/mm3 (1.2-5.4); Lymphocytes % (Auto) 27.8 % (13.4-35.0); Mean Corpuscular HGB Conc 34 % (32-34); Mean Corpuscular Volume 100 fl (84-94); Monocytes # (Auto) 1.1 K/mm3 (0.0-0.8); Monocytes % (Auto) 8.9 % (0.0-7.3); Platelet Count 212 K/mm3 (140-440); Red Blood Count 3.98 M/mm3 (3.65-5.03); Red Cell Distribution Width 13.8 % (13.2-15.2)
[2018-04-27 05:40] LABS: BUN/Creatinine Ratio 6; Blood Urea Nitrogen 8 mg/dL (9-20); Calcium 8.1 mg/dL (8.4-10.2); Hemolysis Index 7
[2018-04-27] MEDS: FLAGYL 500 MG/100 ML 500 MG/100 ML BAG IV SCH ×3 (06:11→22:12)
--- NOTE | 2018-04-27 08:19 | Consultation ---
History of Present Illness - Reason for Consult Consult date: 04/27/18 - History of Present Illness new onset of seizures with negative CT plan to recommend meds plus will check metabolic planels thanks Past History Past Medical History: hypertension Past Surgical History: No surgical history Social history: smoking, alcohol abuse (quit drinking 6 year ago) Family history: no significant family history Medications and Allergies Allergies Allergy/AdvReac Type Severity Reaction Status Date / Time No Known Allergies Allergy Verified 04/26/18 02:55 Home Medications Medication Instructions Recorded Confirmed Last Taken Type No Known Home Medications [No 04/26/18 04/26/18 Unknown History Reported Home Medications] Active Meds: Active Medications Acetaminophen (Tylenol) 650 mg PO Q4H PRN PRN Reason: Pain MILD(1-3)/Fever >100.5/ZAMAN Albuterol/Ipratropium (Duoneb *Not For Prn Use*) 1 ampul IH Q6HRT [facility] Last Admin: 04/27/18 01:25 Dose: 1 ampul Documented by: Budesonide (Pulmicort) 0.5 mg IH Q12HRT [facility] Last Admin: 04/26/18 20:10 Dose: 0.5 mg Documented by: Azithromycin 500 mg/ Sodium (Chloride) 250 mls @ 250 mls/hr IV Q24H [facility]; Protocol Last Admin: 04/26/18 21:54 Dose: 250 mls/hr Documented by: Ceftriaxone Sodium (Rocephin/Ns 2 Gm/100 Ml) 2 gm in 100 mls @ 200 mls/hr IV Q24H [facility]; Protocol Last Admin: 04/26/18 21:54 Dose: 200 mls/hr Documented by: Sodium Chloride (Nacl 0.9% 1000 Ml) 1,000 mls @ 100 mls/hr IV DIRECT [facility] Last Admin: 04/26/18 15:08 Dose: 100 mls/hr Documented by: Levetiracetam 750 mg/ Sodium (Chloride) 107.5 mls @ 400 mls/hr IV Q12HR [facility] Last Admin: 04/26/18 22:41 Dose: 400 mls/hr Documented by: Metronidazole (Flagyl 500 Mg/100 Ml) 500 mg in 100 mls @ 100 mls/hr IV Q8HR [facility]; Protocol Last Admin: 04/27/18 06:11 Dose: 100 mls/hr Documented by: Lorazepam (Ativan) 1 mg IV Q1H PRN PRN Reason: Seizures Ondansetron HCl (Zofran) 4 mg IV Q8H PRN PRN Reason: Nausea And Vomiting Last Admin: 04/26/18 09:37 Dose: 4 mg Documented by: Pantoprazole Sodium (Protonix) 40 mg IV QDAY [facility] Last Admin: 04/26/18 18:23 Dose: 40 mg Documented by: Sodium Chloride (Sodium Chloride Flush Syringe 10 Ml) 10 ml IV BID [facility] Last Admin: 04/26/18 22:01 Dose: 10 ml Documented by: Sodium Chloride (Sodium Chloride Flush Syringe 10 Ml) 10 ml IV PRN PRN PRN Reason: LINE FLUSH Exam - Constitutional Vitals: Temp Pulse Resp BP Pulse Ox 99.2 F 73 18 188/74 96 04/27/18 07:17 04/27/18 07:17 04/27/18 07:17 04/27/18 07:17 04/27/18 07:17 Results - Labs CBC & Chem 7: 04/27/18 05:03 04/27/18 05:03 Labs: Abnormal lab results 04/27/18 04/27/18 Range/Units 05:03 05:03 WBC 12.8 H (4.5-11.0) K/mm3 MCV 100 H (84-94) fl MCH 34 H (28-32) pg Price % (Auto) 8.9 H (0.0-7.3) % Price # 1.1 H (0.0-0.8) K/mm3 Seg Neutrophils # 7.9 H (1.8-7.7) K/mm3 Potassium 3.0 L D (3.6-5.0) mmol/L Chloride 108.4 H (98-107) mmol/L BUN 8 L (9-20) mg/dL Calcium 8.1 L D (8.4-10.2) mg/dL
[2018-04-27] MEDS: ZOFRAN IV PRN (08:22)
[2018-04-27] MEDS: PULMICORT IH SCH ×2 (08:32→20:15)
--- NOTE | 2018-04-27 11:03 | Progress Note ---
Assessment and Plan Assessment and plan: New-onset seizure. We will follow-up MRI, EEG. Bilateral community-acquired pneumonia. Continue IV antibiotics and follow cultures. Acute gastritis/colitis. Continue antibiotics and follow up stool studies. Continue PPI. Follow-up abdominal ultrasound. Acute abdominal pain. Etiology secondary to above. Liver lesion. GI following. Check alpha-fetoprotein. Hypertension. Continue antihypertensive medications. History Interval history: No new issues overnight. Hospitalist Physical - Constitutional Vitals: Temp Pulse Resp BP Pulse Ox 99.2 F 66 18 188/74 99 04/27/18 07:17 04/27/18 08:33 04/27/18 08:33 04/27/18 07:17 04/27/18 08:35 General appearance: Present: no acute distress - EENT Eyes: Present: PERRL, EOM intact ENT: hearing intact, clear oral mucosa, dentition normal - Neck Neck: Present: supple, normal ROM - Respiratory Respiratory effort: normal Respiratory: bilateral: CTA - Cardiovascular Rhythm: regular Heart Sounds: Present: S1 & S2. Absent: gallop, rub - Extremities Extremities: no ischemia, No edema, Full ROM - Abdominal General gastrointestinal: soft, non-tender, non-distended, normal bowel sounds - Integumentary Integumentary: Present: clear, warm, dry - Neurologic Neurologic: CNII-XII intact, moves all extremities Results - Labs CBC & Chem 7: 04/27/18 05:03 04/27/18 05:03 Labs: Laboratory Last Values WBC 12.8 K/mm3 (4.5-11.0) H 04/27/18 05:03 RBC 3.98 M/mm3 (3.65-5.03) 04/27/18 05:03 Hgb 13.5 gm/dl (11.8-15.2) D 04/27/18 05:03 Hct 39.9 % (35.5-45.6) D 04/27/18 05:03 MCV 100 fl (84-94) H 04/27/18 05:03 MCH 34 pg (28-32) H 04/27/18 05:03 MCHC 34 % (32-34) 04/27/18 05:03 RDW 13.8 % (13.2-15.2) 04/27/18 05:03 Plt Count 212 K/mm3 (140-440) 04/27/18 05:03 Lymph % (Auto) 27.8 % (13.4-35.0) 04/27/18 05:03 [place] % (Auto) 8.9 % (0.0-7.3) H 04/27/18 05:03 Eos % (Auto) 0.6 % (0.0-4.3) 04/27/18 05:03 Baso % (Auto) 1.1 % (0.0-1.8) 04/27/18 05:03 Lymph # 3.6 K/mm3 (1.2-5.4) 04/27/18 05:03 [place] # 1.1 K/mm3 (0.0-0.8) H 04/27/18 05:03 Eos # 0.1 K/mm3 (0.0-0.4) 04/27/18 05:03 Baso # 0.1 K/mm3 (0.0-0.1) 04/27/18 05:03 Seg Neutrophils % 61.6 % (40.0-70.0) 04/27/18 05:03 Seg Neutrophils # 7.9 K/mm3 (1.8-7.7) H 04/27/18 05:03 PT 14.3 Sec. (12.2-14.9) 04/25/18 22:34 INR 1.07 (0.87-1.13) 04/25/18 22:34 Sodium 143 mmol/L (137-145) D 04/27/18 05:03 Potassium 3.0 mmol/L (3.6-5.0) L D 04/27/18 05:03 Chloride 108.4 mmol/L (98-107) H 04/27/18 05:03 Carbon Dioxide 23 mmol/L (22-30) 04/27/18 05:03 Anion Gap 15 mmol/L 04/27/18 05:03 BUN 8 mg/dL (9-20) L 04/27/18 05:03 Creatinine 1.4 mg/dL (0.8-1.5) 04/27/18 05:03 Estimated GFR > 60 ml/min 04/27/18 05:03 BUN/Creatinine Ratio 6 % 04/27/18 05:03 Glucose 89 mg/dL (75-100) 04/27/18 05:03 Lactic Acid 1.60 mmol/L (0.7-2.0) 04/26/18 01:52 Calcium 8.1 mg/dL (8.4-10.2) L D 04/27/18 05:03 Magnesium 2.20 mg/dL (1.7-2.3) 04/25/18 22:34 Total Bilirubin 0.70 mg/dL (0.1-1.2) 04/25/18 22:34 Direct Bilirubin < 0.2 mg/dL (0-0.2) 04/25/18 22:34 Indirect Bilirubin 0.5 mg/dL 04/25/18 22:34 AST 22 units/L (5-40) 04/25/18 22:34 ALT 15 units/L (7-56) 04/25/18 22:34 Alkaline Phosphatase 84 units/L (35-129) 04/25/18 22:34 Total Creatine Kinase 155 units/L (55-170) 04/25/18 22:34 Troponin T < 0.010 ng/mL (0.00-0.029) 04/25/18 22:34 Total Protein 7.7 g/dL (6.3-8.2) 04/25/18 22:34 Albumin 4.4 g/dL (3.9-5) 04/25/18 22:34 Albumin/Globulin Ratio 1.3 % 04/25/18 22:34 Lipase 20 units/L (13-60) 04/25/18 22:34 Urine Color Straw (Yellow) 04/26/18 00:01 Urine Turbidity Clear (Clear) 04/26/18 00:01 Urine pH 5.0 (5.0-7.0) 04/26/18 00:01 Ur Specific [place] 1.008 (1.003-1.030) 04/26/18 00:01 Urine Protein 100 mg/dl mg/dL (Negative) 04/26/18 00:01 Urine Glucose (UA) 50 mg/dL (Negative) 04/26/18 00:01 Urine Ketones Neg mg/dL (Negative) 04/26/18 00:01 Urine Blood Sm (Negative) 04/26/18 00:01 Urine Nitrite Neg (Negative) 04/26/18 00:01 Urine Bilirubin Neg (Negative) 04/26/18 00:01 Urine Urobilinogen < 2.0 mg/dL (<2.0) 04/26/18 00:01 Ur Leukocyte Esterase Neg (Negative) 04/26/18 00:01 Urine WBC (Auto) 1.0 /HPF (0.0-6.0) 04/26/18 00:01 Urine RBC (Auto) 1.0 /HPF (0.0-6.0) 04/26/18 00:01 Urine Mucus Few /HPF 04/26/18 00:01 Salicylates < 0.3 mg/dL (2.8-20.0) L 04/25/18 22:34 Urine Opiates Screen Presumptive negative 04/26/18 00:01 Urine Methadone Screen Presumptive negative 04/26/18 00:01 Acetaminophen < 5.0 ug/mL (10.0-30.0) L 04/25/18 22:34 Ur Barbiturates Screen Presumptive negative 04/26/18 00:01 Ur Phencyclidine Scrn Presumptive negative 04/26/18 00:01 Ur Amphetamines Screen Presumptive negative 04/26/18 00:01 U Benzodiazepines Scrn Presumptive negative 04/26/18 00:01 Urine Cocaine Screen Presumptive negative 04/26/18 00:01 U Marijuana (THC) Screen Presumptive positive 04/26/18 00:01 Drugs of Abuse Note Disclamer 04/26/18 00:01 Plasma/Serum Alcohol < 0.01 % (0-0.07) 04/25/18 22:34
--- NOTE | 2018-04-27 11:39 | Magnetic Resonance Report ---
MRI BRAIN WITH/WITHOUT CONTRAST: History: New onset seizure Technique: Multiple T1 and T2 weighted images were obtained in multiple planes. Axial diffusion and gradient imaging was performed. Post contrast T1 images in two planes were obtained following IV gadolinium. Findings: Compared to the CT head dated 04/25/18. Minimal nonspecific T2 signal abnormalities are identified in the periventricular and subcortical white matter bilaterally. This most likely represents chronic small vessel disease. Otherwise, the remaining brain parenchyma demonstrates normal signal on all sequences. No diffusion restriction, hemorrhage, mass effect or extra-axial fluid collection. Ventricular size is normal and symmetric. The basal cisterns are clear. The brainstem and cerebellar hemispheres are within normal limits. The fourth ventricle is midline. The paranasal sinuses and mastoid air cells are well aerated. Normal flow voids are identified in the appropriate vessels at the pilot point of [place]. No abnormal enhancement is identified following IV gadolinium. Impression: Unremarkable MRI brain with and without contrast.
--- NOTE | 2018-04-27 11:48 | Magnetic Resonance Report ---
MR ABDOMEN WITH AND WITHOUT CONTRAST HISTORY: Liver mass TECHNIQUE: Multiple T1 and T2-weighted images with and without fat suppression were obtained. Postcontrast dynamic imaging and T1 fat-sat. Thin and thick slab and radial MRCP images. FINDINGS: CT abdomen and pelvis with contrast performed 04/26/18 and ultrasound abdomen performed 04/27/[address] abdomen and pelvis with contrast report mentions a 2.3 cm area of enhancement in the posterior right hepatic lobe. There is actually a second area of enhancement in the medial right hepatic lobe measuring up to 3.4 cm in width and 7 cm in cranial caudal dimension. These areas of enhancement are not identified on the delayed CT images. These areas of enhancement are also identified on the postcontrast MR arterial images only. These areas of enhancement resolve on the delayed images. No abnormality is demonstrated in these areas on ultrasound. I suspect these represent arterial perfusion defects on post contrast images and not a true liver lesion. The liver is normal size, contour and signal on MR. The biliary system, pancreas, spleen, kidneys, adrenal glands and visualized bowel loops are within normal limits on MR. The aorta is normal caliber. There is trace perihepatic ascites of uncertain significance on MR. No adenopathy or inflammatory changes. IMPRESSION: Normal liver. The previously described enhancing lesions on recent CT appear to represent arterial perfusion defects seen only on CT with contrast and MR with contrast arterial phase. Trace perihepatic ascites of doubtful clinical significance.
[2018-04-27] MEDS: NORMODYNE PO SCH ×2 (11:59→21:04)
[2018-04-27] MEDS: KEPPRA 750 MG in NACL 0.9% 100 ML IV SCH ×2 (11:59→21:08)
[2018-04-27] MEDS: SODIUM CHLORIDE FLUSH SYRINGE 10 ML IV SCH ×2 (12:00→21:07)
[2018-04-27] MEDS: PROTONIX IV SCH (12:00)
--- NOTE | 2018-04-27 12:02 | Ultrasound Report ---
ULTRASOUND ABDOMEN COMPLETE: TECHNIQUE: Transabdominal ultrasound with color Doppler interrogation. HISTORY: Epigastric pain, nausea and vomiting. COMPARISON: none. FINDINGS: LIVER: Normal. The previously described liver lesion seen on CT are not identified on ultrasound. Please refer to the MR abdomen report performed the same day. BILIARY SYSTEM: The gallbladder is normal size, contour and wall thickness. There is suggestion of a 3 mm polyp along the posterior wall. No cholelithiasis. The CBD measures 3 mm. PANCREAS: Normal. SPLEEN: Normal. KIDNEYS: The kidneys are normal size, contour and position. There is mild increased renal parenchymal echotexture consistent with nonspecific renal parenchymal disease. No focal renal lesion or hydronephrosis. AORTA/IVC: Normal. ASCITES: Trace perihepatic ascites. IMPRESSION: Normal liver. 3 mm gallbladder polyp. Nonspecific renal parenchymal disease. Trace perihepatic ascites.
--- NOTE | 2018-04-27 12:45 | Gastroenterology Progress Note ---
<YOHAN SRINIVASAN - Last Filed: 04/27/18 12:39> Assessment and Plan 1.epigastric pain/gastritis seen on CT 2.N/V 3.colitis seen on CT -afebrile -WBC 12.8-trending down -clinically, patient reports feeling better with epigastric pain improved. No N/V or diarrhea. Tolerating diet -continue PPI -continue empiric antibiotics and supportive care -screening colonoscopy as outpatient -patient okay to be d/c per GI standpoint on antibiotics with f/u in clinic ~2-3 weeks 4.liver lesion -LFTs and lipase WNL -AFP pending -CT revealed 2.3cm lesion in the posterior segment of the right lobe of the liver (atypical hemangioma vs adenoma) -further evaluation with abd u/s and MRI today revealed trace perihepatic ascites of doubtful clinical significance but no liver lesion/mass (liver normal on imaging) -no further workup recommended -will sign off, please call if needed 4.New-onset seizure -heat CT negative -management per neurology 5.pneumonia -on antibiotics -management per primary team 6.HTN Subjective Date of service: 04/27/18 Principal diagnosis: colitis, liver lesion Interval history: Patient sitting up in bed eating lunch w/o acute distress. Reports feeling better with epigastric pain improved. No N/V. Objective - Constitutional Vitals: Temp Pulse Resp BP Pulse Ox 99.2 F 66 18 188/74 99 04/27/18 07:17 04/27/18 08:33 04/27/18 08:33 04/27/18 07:17 04/27/18 08:35 General appearance: no acute distress - Respiratory Respiratory: bilateral: CTA - Cardiovascular Rhythm: regular Heart Sounds: Present: S1 & S2 - Gastrointestinal General gastrointestinal: Present: soft, non-tender, non-distended, normal bowel sounds - Neurologic Neurological: alert and oriented x3 - Labs CBC & Chem 7: 04/27/18 05:03 04/27/18 05:03 Labs: Laboratory Results - last 24 hr 04/27/18 04/27/18 05:03 05:03 WBC 12.8 H RBC 3.98 Hgb 13.5 D Hct 39.9 D MCV 100 H MCH 34 H MCHC 34 RDW 13.8 Plt Count 212 Lymph % (Auto) 27.8 [place] % (Auto) 8.9 H Eos % (Auto) 0.6 Baso % (Auto) 1.1 Lymph # 3.6 [place] # 1.1 H Eos # 0.1 Baso # 0.1 Seg Neutrophils % 61.6 Seg Neutrophils # 7.9 H Sodium 143 D Potassium 3.0 L D Chloride 108.4 H Carbon Dioxide 23 Anion Gap 15 BUN 8 L Creatinine 1.4 Estimated GFR > 60 BUN/Creatinine Ratio 6 Glucose 89 Calcium 8.1 L D <JESSE FIERRO R - Last Filed: 04/27/18 15:20> Assessment and Plan Pt feels better. [place] po well. Pain much improved. Liver lesion - perfusion artifact. Pt likely has underlying IBS. May well have had syncope due to vol depletion, and possible vasovagal phenomenon. Plan as noted, and will recommend outpatient f/u for screening colonoscopy, management of IBS-D, and further evaluation of stomach with possible EGD in 4-6 wks. Objective - Constitutional Vitals: Temp Pulse Resp BP Pulse Ox 98.5 F 67 20 143/65 97 04/27/18 12:01 04/27/18 12:01 04/27/18 12:01 04/27/18 12:01 04/27/18 12:01 - Labs CBC & Chem 7: 04/27/18 05:03 04/27/18 05:03 Labs: Laboratory Results - last 24 hr 04/27/18 04/27/18 05:03 05:03 WBC 12.8 H RBC 3.98 Hgb 13.5 D Hct 39.9 D MCV 100 H MCH 34 H MCHC 34 RDW 13.8 Plt Count 212 Lymph % (Auto) 27.8 [place] % (Auto) 8.9 H Eos % (Auto) 0.6 Baso % (Auto) 1.1 Lymph # 3.6 [place] # 1.1 H Eos # 0.1 Baso # 0.1 Seg Neutrophils % 61.6 Seg Neutrophils # 7.9 H Sodium 143 D Potassium 3.0 L D Chloride 108.4 H Carbon Dioxide 23 Anion Gap 15 BUN 8 L Creatinine 1.4 Estimated GFR > 60 BUN/Creatinine Ratio 6 Glucose 89 Calcium 8.1 L D
[2018-04-27] MEDS: NACL 0.9% 1000 ML 1,000 ML IV SCH (17:56)
[2018-04-27] MEDS: ROCEPHIN/NS 2 GM/100 ML 2 GM/100 ML BAG IV SCH (21:38)
[2018-04-27] MEDS: ZITHROMAX 500 MG in NACL 0.9% 250ML 250 ML IV SCH (23:18)
[2018-04-28] MEDS: DUONEB *Not for PRN Use IH SCH ×4 (02:05→19:43)
[2018-04-28 05:30] LABS: Basophils # (Auto) 0.1 K/mm3 (0.0-0.1); Basophils % (Auto) 0.5 % (0.0-1.8); Eosinophils # (Auto) 0.2 K/mm3 (0.0-0.4); Eosinophils % (Auto) 1.3 % (0.0-4.3); Hematocrit 42.3 % (35.5-45.6); Hemoglobin 14.3 gm/dl (11.8-15.2); Lymphocytes # (Auto) 3.3 K/mm3 (1.2-5.4); Lymphocytes % (Auto) 25.6 % (13.4-35.0); Mean Corpuscular HGB Conc 34 % (32-34); Mean Corpuscular Volume 100 fl (84-94); Monocytes # (Auto) 1.1 K/mm3 (0.0-0.8); Monocytes % (Auto) 8.2 % (0.0-7.3); Platelet Count 208 K/mm3 (140-440); Red Blood Count 4.23 M/mm3 (3.65-5.03)
[2018-04-28 05:55] LABS: BUN/Creatinine Ratio 6; Blood Urea Nitrogen 8 mg/dL (9-20); Calcium 8.2 mg/dL (8.4-10.2); Hemolysis Index 4
[2018-04-28] MEDS: FLAGYL 500 MG/100 ML 500 MG/100 ML BAG IV SCH ×3 (06:42→23:16)
[2018-04-28] MEDS: PULMICORT IH SCH ×2 (08:04→19:43)
[2018-04-28] MEDS: NORMODYNE PO SCH ×2 (09:21→21:37)
[2018-04-28] MEDS: SODIUM CHLORIDE FLUSH SYRINGE 10 ML IV SCH ×2 (09:22→21:38)
[2018-04-28] MEDS: PROTONIX IV SCH (09:22)
[2018-04-28] MEDS: KEPPRA 750 MG in NACL 0.9% 100 ML IV SCH ×2 (09:26→21:38)
--- NOTE | 2018-04-28 10:46 | Progress Note ---
Assessment and Plan Assessment and plan: New-onset seizure. We will follow-up EEG. MRI negative. Neurology following. Bilateral community-acquired pneumonia. Continue IV antibiotics and follow cultures. Acute gastritis/colitis. Continue antibiotics and follow up stool studies. Continue PPI. Abdominal ultrasound and MRI today revealed trace perihepatic ascites of doubtful clinical significance but no liver lesion/mass (liver normal on imaging). GI signed off Acute abdominal pain. Etiology secondary to above. Liver lesion. GI following. Check alpha-fetoprotein. Hypertension. Continue antihypertensive medications. History Interval history: No new issues overnight. Hospitalist Physical - Constitutional Vitals: Temp Pulse Resp BP Pulse Ox 98.0 F 65 18 168/68 98 04/28/18 07:55 04/28/18 09:21 04/28/18 07:55 04/28/18 09:21 04/28/18 07:55 General appearance: Present: no acute distress - EENT Eyes: Present: PERRL, EOM intact ENT: hearing intact, clear oral mucosa, dentition normal - Neck Neck: Present: supple, normal ROM - Respiratory Respiratory effort: normal Respiratory: bilateral: CTA - Cardiovascular Rhythm: regular Heart Sounds: Present: S1 & S2. Absent: gallop, rub - Extremities Extremities: no ischemia, No edema, Full ROM - Abdominal General gastrointestinal: soft, non-tender, non-distended, normal bowel sounds - Integumentary Integumentary: Present: clear, warm, dry - Neurologic Neurologic: CNII-XII intact, moves all extremities Results - Labs CBC & Chem 7: 04/28/18 05:03 04/28/18 05:03 Labs: Laboratory Last Values WBC 12.9 K/mm3 (4.5-11.0) H 04/28/18 05:03 RBC 4.23 M/mm3 (3.65-5.03) 04/28/18 05:03 Hgb 14.3 gm/dl (11.8-15.2) 04/28/18 05:03 Hct 42.3 % (35.5-45.6) 04/28/18 05:03 MCV 100 fl (84-94) H 04/28/18 05:03 MCH 34 pg (28-32) H 04/28/18 05:03 MCHC 34 % (32-34) 04/28/18 05:03 RDW 14.0 % (13.2-15.2) 04/28/18 05:03 Plt Count 208 K/mm3 (140-440) 04/28/18 05:03 Lymph % (Auto) 25.6 % (13.4-35.0) 04/28/18 05:03 [place] % (Auto) 8.2 % (0.0-7.3) H 04/28/18 05:03 Eos % (Auto) 1.3 % (0.0-4.3) 04/28/18 05:03 Baso % (Auto) 0.5 % (0.0-1.8) 04/28/18 05:03 Lymph # 3.3 K/mm3 (1.2-5.4) 04/28/18 05:03 [place] # 1.1 K/mm3 (0.0-0.8) H 04/28/18 05:03 Eos # 0.2 K/mm3 (0.0-0.4) 04/28/18 05:03 Baso # 0.1 K/mm3 (0.0-0.1) 04/28/18 05:03 Seg Neutrophils % 64.4 % (40.0-70.0) 04/28/18 05:03 Seg Neutrophils # 8.3 K/mm3 (1.8-7.7) H 04/28/18 05:03 PT 14.3 Sec. (12.2-14.9) 04/25/18 22:34 INR 1.07 (0.87-1.13) 04/25/18 22:34 Sodium 144 mmol/L (137-145) 04/28/18 05:03 Potassium 3.4 mmol/L (3.6-5.0) L 04/28/18 05:03 Chloride 108.4 mmol/L (98-107) H 04/28/18 05:03 Carbon Dioxide 23 mmol/L (22-30) 04/28/18 05:03 Anion Gap 16 mmol/L 04/28/18 05:03 BUN 8 mg/dL (9-20) L 04/28/18 05:03 Creatinine 1.3 mg/dL (0.8-1.5) 04/28/18 05:03 Estimated GFR > 60 ml/min 04/28/18 05:03 BUN/Creatinine Ratio 6 % 04/28/18 05:03 Glucose 84 mg/dL (75-100) 04/28/18 05:03 Lactic Acid 1.60 mmol/L (0.7-2.0) 04/26/18 01:52 Calcium 8.2 mg/dL (8.4-10.2) L 04/28/18 05:03 Magnesium 2.20 mg/dL (1.7-2.3) 04/25/18 22:34 Total Bilirubin 0.70 mg/dL (0.1-1.2) 04/25/18 22:34 Direct Bilirubin < 0.2 mg/dL (0-0.2) 04/25/18 22:34 Indirect Bilirubin 0.5 mg/dL 04/25/18 22:34 AST 22 units/L (5-40) 04/25/18 22:34 ALT 15 units/L (7-56) 04/25/18 22:34 Alkaline Phosphatase 84 units/L (35-129) 04/25/18 22:34 Total Creatine Kinase 155 units/L (55-170) 04/25/18 22:34 Troponin T < 0.010 ng/mL (0.00-0.029) 04/25/18 22:34 Total Protein 7.7 g/dL (6.3-8.2) 04/25/18 22:34 Albumin 4.4 g/dL (3.9-5) 04/25/18 22:34 Albumin/Globulin Ratio 1.3 % 04/25/18 22:34 Lipase 20 units/L (13-60) 04/25/18 22:34 Urine Color Straw (Yellow) 04/26/18 00:01 Urine Turbidity Clear (Clear) 04/26/18 00:01 Urine pH 5.0 (5.0-7.0) 04/26/18 00:01 Ur Specific [place] 1.008 (1.003-1.030) 04/26/18 00:01 Urine Protein 100 mg/dl mg/dL (Negative) 04/26/18 00:01 Urine Glucose (UA) 50 mg/dL (Negative) 04/26/18 00:01 Urine Ketones Neg mg/dL (Negative) 04/26/18 00:01 Urine Blood Sm (Negative) 04/26/18 00:01 Urine Nitrite Neg (Negative) 04/26/18 00:01 Urine Bilirubin Neg (Negative) 04/26/18 00:01 Urine Urobilinogen < 2.0 mg/dL (<2.0) 04/26/18 00:01 Ur Leukocyte Esterase Neg (Negative) 04/26/18 00:01 Urine WBC (Auto) 1.0 /HPF (0.0-6.0) 04/26/18 00:01 Urine RBC (Auto) 1.0 /HPF (0.0-6.0) 04/26/18 00:01 Urine Mucus Few /HPF 04/26/18 00:01 Salicylates < 0.3 mg/dL (2.8-20.0) L 04/25/18 22:34 Urine Opiates Screen Presumptive negative 04/26/18 00:01 Urine Methadone Screen Presumptive negative 04/26/18 00:01 Acetaminophen < 5.0 ug/mL (10.0-30.0) L 04/25/18 22:34 Ur Barbiturates Screen Presumptive negative 04/26/18 00:01 Ur Phencyclidine Scrn Presumptive negative 04/26/18 00:01 Ur Amphetamines Screen Presumptive negative 04/26/18 00:01 U Benzodiazepines Scrn Presumptive negative 04/26/18 00:01 Urine Cocaine Screen Presumptive negative 04/26/18 00:01 U Marijuana (THC) Screen Presumptive positive 04/26/18 00:01 Drugs of Abuse Note Disclamer 04/26/18 00:01 Plasma/Serum Alcohol < 0.01 % (0-0.07) 04/25/18 22:34
[2018-04-28] MEDS ORDERED: AFLURIA QUAD 2018-2019 SYRINGE IM ONE ×2 (12:00→19:28)
[2018-04-28] MEDS ORDERED: PNEUMOVAX 23 IM ONE (12:00)
--- NOTE | 2018-04-28 13:23 | Progress Note ---
Subjective Date of service: 04/28/18 Principal diagnosis: colitis, liver lesion Interval history: seizure control is good patient is stable no further attacks went over the test results with patient Objective - Vital Sign Vital Signs - 12hr 04/28/18 04/28/18 04/28/18 04:25 07:55 08:04 Temperature 98.7 F 98.0 F Pulse Rate 75 65 Pulse Rate [ 69 Anterior Bilateral Throughout] Respiratory 16 18 Rate Respiratory 18 Rate [Anterior Bilateral Throughout] Blood Pressure 180/80 168/68 O2 Sat by Pulse 96 98 99 Oximetry 04/28/18 04/28/18 04/28/18 08:15 09:21 10:00 Temperature Pulse Rate 65 72 Pulse Rate [ 68 Anterior Bilateral Throughout] Respiratory Rate Respiratory 18 Rate [Anterior Bilateral Throughout] Blood Pressure 168/68 O2 Sat by Pulse Oximetry 04/28/18 10:58 Temperature 98.0 F Pulse Rate 69 Pulse Rate [ Anterior Bilateral Throughout] Respiratory 18 Rate Respiratory Rate [Anterior Bilateral Throughout] Blood Pressure 168/73 O2 Sat by Pulse 95 Oximetry - Laboratory Findings CBC and BMP: 04/28/18 05:03 04/28/18 05:03 Abnormal Lab Findings: Abnormal Labs 04/25/18 04/25/18 04/25/18 22:34 22:34 22:34 WBC 14.3 H RBC 5.21 H Hgb 17.4 H Hct 52.0 H MCV 100 H MCH 33 H Lymph % (Auto) 6.9 L [place] % (Auto) Lymph # 1.0 L [place] # Seg Neutrophils % 88.0 H Seg Neutrophils # 12.6 H Sodium 135 L Potassium Chloride Carbon Dioxide 20 L BUN Glucose 185 H Calcium Salicylates < 0.3 L Acetaminophen 04/25/18 04/27/18 04/27/18 22:34 05:03 05:03 WBC 12.8 H RBC Hgb Hct MCV 100 H MCH 34 H Lymph % (Auto) [place] % (Auto) 8.9 H Lymph # [place] # 1.1 H Seg Neutrophils % Seg Neutrophils # 7.9 H Sodium Potassium 3.0 L D Chloride 108.4 H Carbon Dioxide BUN 8 L Glucose Calcium 8.1 L D Salicylates Acetaminophen < 5.0 L 04/28/18 04/28/18 05:03 05:03 WBC 12.9 H RBC Hgb Hct MCV 100 H MCH 34 H Lymph % (Auto) [place] % (Auto) 8.2 H Lymph # [place] # 1.1 H Seg Neutrophils % Seg Neutrophils # 8.3 H Sodium Potassium 3.4 L Chloride 108.4 H Carbon Dioxide BUN 8 L Glucose Calcium 8.2 L Salicylates Acetaminophen
[2018-04-28] MEDS: NACL 0.9% 1000 ML 1,000 ML IV SCH (18:24)
[2018-04-28] MEDS: ROCEPHIN/NS 2 GM/100 ML 2 GM/100 ML BAG IV SCH (22:10)
[2018-04-28] MEDS: ZITHROMAX 500 MG in NACL 0.9% 250ML 250 ML IV SCH (23:21)
[2018-04-29] MEDS ORDERED: APRESOLINE IV PRN (01:45)
[2018-04-29] MEDS: ZOFRAN IV PRN (04:52)
[2018-04-29] MEDS: FLAGYL 500 MG/100 ML 500 MG/100 ML BAG IV SCH (05:07)
[2018-04-29] MEDS: NACL 0.9% 1000 ML 1,000 ML IV SCH (05:07)
[2018-04-29] MEDS: PULMICORT IH SCH (07:53)
[2018-04-29] MEDS ORDERED: DUONEB *Not for PRN Use IH SCH (08:00)
[2018-04-29] MEDS ORDERED: PROTONIX PO SCH (10:00)
--- NOTE | 2018-04-29 10:03 | Discharge Summary ---
Providers - Providers Date of Admission: 04/27/18 11:57 Date of discharge: 04/29/18 Attending physician: ASHISH GIVENS 04/26/18 02:43 Consult to Physician [CONS] Routine Comment: Consulting Provider: BANG ALVA Physician Instructions: Reason For Exam: seizure 04/26/18 13:35 Consult to Physician [CONS] Routine Comment: Consulting Provider: DENNIS MORGAN Physician Instructions: Reason For Exam: colitis, liver lesion Consult to Physician [CONS] Routine Comment: Consulting Provider: RAFA DE LOS SANTOS Physician Instructions: Reason For Exam: new seizure Primary care physician: MILO MOREIRA Hospitalization Reason for admission: abd pain, sz Condition: Stable Hospital course: Patient is a 57 y/o male with PMH of HTN who presented to ED due to new onset sz. He also had c/o epigastric pain and cough. Upon admission, head CT negative, chest CTA showed pneumonia (no evidence of PE), and abd CT showed gastritis/colitis/liver lesion to which GI was consulted. Neurology consulted for new onset sz. The patient was admitted with diagnosis of new onset seizure, bilateral community-acquired pneumonia, acute gastritis/colitis and liver lesion. Neurology recommended MRI which showed no acute findings. The patient was counseled with regards to [place] driving laws until cleared by neurology or PCP. Patient is a follow-up neurology as an outpatient. With regards to the liver lesion, MRI of the abdomen was obtained which revealed normal liver. 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 GI recommended continuation of empiric antibiotics and follow-up screening colonoscopy as an outpatient. Dedi cated discharge time 35 minutes. Disposition: DC-01 TO HOME OR SELFCARE Time spent for discharge: 35 Core Measure Documentation - Palliative Care Palliative Care/ Comfort Measures: Not Applicable - Core Measures Any of the following diagnoses?: none Exam - Constitutional Vitals: Temp Pulse Resp BP Pulse Ox 98.0 F 86 20 166/85 99 04/29/18 07:26 04/29/18 08:03 04/29/18 08:03 04/29/18 07:26 04/29/18 07:53 General appearance: Present: no acute distress, well-nourished - EENT Eyes: Present: PERRL ENT: hearing intact, clear oral mucosa - Neck Neck: Present: supple, normal ROM - Respiratory Respiratory effort: normal Respiratory: bilateral: CTA - Cardiovascular Heart Sounds: Present: S1 & S2. Absent: rub, click - Extremities Extremities: pulses symmetrical, No edema Peripheral Pulses: within normal limits - Abdominal General gastrointestinal: Present: soft, non-tender, non-distended, normal bowel sounds Male genitourinary: Present: normal - Integumentary Integumentary: Present: clear, warm, dry - Musculoskeletal Musculoskeletal: gait normal, strength equal bilaterally - Psychiatric Psychiatric: appropriate mood/affect, intact judgment & insight - Neurologic Neurologic: CNII-XII intact, moves all extremities Plan Activity: advance as tolerated, no driving until cleared by PCP Diet: regular Follow up with: MILO MOREIRA MD [Primary Care Provider] - 3-5 Days RAFA DE LOS SANTOS MD [Staff Physician] - 7 Days DENNIS MORGAN MD [Staff Physician] - 7 Days Prescriptions: Labetalol [Normodyne TAB] 200 mg PO BID #60 tablet levETIRAcetam [Keppra] 750 mg PO BID #60 tablet levoFLOXacin [Levaquin] 750 mg PO QDAY #7 tablet metroNIDAZOLE [Flagyl] 500 mg PO Q8HR #21 tablet
[2018-04-29] MEDS: NORMODYNE PO SCH (10:40)
[2018-04-29] MEDS: SODIUM CHLORIDE FLUSH SYRINGE 10 ML IV SCH (10:41)
[2018-04-29] MEDS: KEPPRA 750 MG in NACL 0.9% 100 ML IV SCH (10:41)
[2018-04-29 12:03] VITALS: BP 155/88
== END 2018-04-29 12:35 | disposition home or self-care (01) | DRG 100 ==
LOC: ED 21:38 → 4A 04-26 02:26 → OBSVTOIN 04-27 11:57
PROVIDERS: ADMIT Internal Medicine; ATTEND Hospitalist
PROC: 3E0234Z Introduction of Serum, Toxoid and Vaccine into Muscle, Percutaneous Approach (ICD-10-PCS; principal; 2018-04-28)
DX: G40.89 Other seizures (principal); J18.9 Pneumonia, unspecified organism; R65.10 Systemic inflammatory response syndrome (SIRS) of non-infectious origin without acute organ dysfunction; K29.00 Acute gastritis without bleeding; K52.9 Noninfective gastroenteritis and colitis, unspecified; I10 Essential (primary) hypertension; K76.9 Liver disease, unspecified; Z23 Encounter for immunization
CPT/HCPCS: 36415; 70450; 70553; 71275; 74177; 74183; 76700; 80048; 80076; 80307; 80320; 81001; 82106; 82140; 82550; 83690; 83735; 84484; 85025; 85610; 87040; 90686; 90732; 93005; 93010; 94640; 95819; 96361; 96365; 96375; 99406; G0378; C9113; G0480; J0360; J0456; J0696; J1953; J2060; J2405; J7030; J7050; Q9967

== ENCOUNTER 2018-06-18 00:39 | Emergency (ER) | payer OTHER ==
[2018-06-18] MEDS ORDERED: KEPPRA 1,000 MG/NS 0.75% 100ML 1,000 MG/100 ML BAG IV ONE (00:45)
--- NOTE | 2018-06-18 00:51 | Emergency Department Report ---
ED Seizure HPI - General Chief Complaint: Seizure Stated Complaint: SEIZURE Time Seen by Provider: 06/18/18 00:44 Source: family, EMS, RN notes reviewed, old records reviewed Mode of arrival: Stretcher Limitations: No Limitations - History of Present Illness Initial Comments: Mr. Marie is a 57 yo male who presents with seizure. 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 Witnessed seizure. Second seizure since April. Admitted to our hospital here [facility] for new onset seizure last month. Dx'd with pneumonia, gastritis, colitis and liver lesion. Referred to outpatient neurologist for further evaluation. Upon 's arrival, she provided additional information. Today he's felt generally unwell and lightheaded. He normally smokes a blunt or 2 daily. He has been smoking daily for several years. He was a heavy alcohol drinker. However he stopped drinking alcohol 8 years ago. His witnessed 1 minute long seizure while laying in bed tonight. He did not take Keppra for the last 2 days. He wanted to see how his body would react without the medication. He has been followed by PCP at the [facility]. His PCP plans to refer him to a neurologist. Prior to the last 2 days he has been compliant with his Keppra medication. EMS noted BG 50 upon arrival, severely elevated blood pressure and tachycardia. Medications upon discharge included labetalol, keppra. MD Complaint: seizure -: Sudden Description of Episode: loss of consciousness, tonic-clonic movement Witnessed:: Yes Trauma: No Seizure History: other (recent admission in April for new onset seizure) Place: other ([facility]) Possible Precipitating Event: none Associated Symptoms: denies other symptoms Treatments Prior to Arrival: other (dextrose) - Related Data Previous Rx's Medication Instructions Recorded Last Taken Type Labetalol [Normodyne TAB] 200 mg PO BID #60 tablet 04/29/18 Unknown Rx levETIRAcetam [Keppra] 750 mg PO BID #60 tablet 04/29/18 Unknown Rx levoFLOXacin [Levaquin] 750 mg PO QDAY #7 tablet 04/29/18 Unknown Rx metroNIDAZOLE [Flagyl] 500 mg PO Q8HR #21 tablet 04/29/18 Unknown Rx levoFLOXacin [Levaquin] 750 mg PO DAILY 5 Days #5 tablet 06/18/18 Unknown Rx Allergies Allergy/AdvReac Type Severity Reaction Status Date / Time No Known Allergies Allergy Verified 04/26/18 02:55 ED Review of Systems ROS: Stated complaint: SEIZURE Other details as noted in HPI Comment: All other systems reviewed and negative Constitutional: malaise. denies: fever Respiratory: denies: orthopnea Cardiovascular: denies: chest pain ED Past Medical Hx - Past Medical History Previous Medical History?: Yes Hx Hypertension: Yes Hx Seizures: Yes (NEW ONSET) - Surgical History Past Surgical History?: No - Social History Smoking Status: Current Some Day Smoker Substance Use Type: Marijuana Other Social History: Currently unemployed, lives with and children - Medications Home Medications: Home Medications Medication Instructions Recorded Confirmed Last Taken Type Labetalol [Normodyne TAB] 200 mg PO BID #60 tablet 04/29/18 Unknown Rx levETIRAcetam [Keppra] 750 mg PO BID #60 tablet 04/29/18 Unknown Rx levoFLOXacin [Levaquin] 750 mg PO QDAY #7 tablet 04/29/18 Unknown Rx metroNIDAZOLE [Flagyl] 500 mg PO Q8HR #21 tablet 04/29/18 Unknown Rx levoFLOXacin [Levaquin] 750 mg PO DAILY 5 Days #5 tablet 06/18/18 Unknown Rx ED Physical Exam - General Limitations: No Limitations General appearance: alert, in no apparent distress, other (diaphoretic, [place] respirations, alert) - Head Head exam: Present: atraumatic, normocephalic - Eye Eye exam: Present: normal appearance - ENT ENT exam: Present: mucous membranes moist - Neck Neck exam: Present: normal inspection, full ROM - Respiratory Respiratory exam: Present: normal lung sounds bilaterally, respiratory distress. Absent: wheezes, rales, rhonchi, decreased breath sounds, prolonged expiratory - Cardiovascular Cardiovascular Exam: Present: normal rhythm, tachycardia, normal heart sounds. Absent: systolic murmur, diastolic murmur, rubs, gallop - GI/Abdominal GI/Abdominal exam: Present: soft, normal bowel sounds. Absent: distended, tenderness, guarding, rebound - Rectal Rectal exam: Present: deferred - Extremities Exam Extremities exam: Present: normal inspection - Back Exam Back exam: Present: normal inspection - Neurological Exam Neurological exam: Present: alert, oriented X3 - Psychiatric Psychiatric exam: Present: normal affect, normal mood - Skin Skin exam: Present: warm, dry, intact, normal color. Absent: rash ED Course Vital Signs 06/18/18 06/18/18 00:58 01:02 Temperature 98.6 F Pulse Rate 117 H Respiratory 24 22 Rate Blood Pressure 176/96 [Right] O2 Sat by Pulse 94 94 Oximetry ED Medical Decision Making - Lab Data Result diagrams: 06/18/18 01:10 06/18/18 01:10 - EKG Data 06/18/18 01:19 EKG obtained 0104 Sinus tachycardia rate 120 beats a minute normal axis normal intervals no ST elevation nonspecific T wave pattern - Radiology Data Radiology results: report reviewed CT head NAP pcxr: vascular congestion - Medical Decision Making Mr. Marie presents with recurrent seizure after missing two doses of medication Keppra. Suspect lowered seizure threshold with daily marijuana use. Reviewed labs noted for hemoconcentration, anion gap metabolic acidosis likely lactic acidosis as a result of seizure. Normal PH. No hx of diabetes but did have hypoglycemia. previous hx of PNA, SIRS: blood cultures obtained, IV ceftriaxone administered. Given IV keppra load, Given IVF rx: levaquin dc'd home after 6 hours observation. No further seizure hx. Mr. Marie is alert and insightful. Reminded that he is not clear to drive. reassured me that he has Keppra prescription at home. Critical Care Time: Yes Critical care time in (mins) excluding proc time.: 40 Critical care attestation.: If time is entered above; I have spent that time in minutes in the direct care of this critically ill patient, excluding procedure time. 40 minutes of critical care time excluding procedures were used in the care of the patient. Patient required multiple assessments and interventions. I reviewed the electronic medical record. I spoke with consultants involved in the care of the patient. ED Disposition Clinical Impression: Seizure, Hypoglycemia Disposition: DC-01 TO HOME OR SELFCARE Is pt being admited?: No Does the pt Need Aspirin: No Condition: Stable Instructions: Recurrent Seizures Adult (ED) Prescriptions: levoFLOXacin [Levaquin] 750 mg PO DAILY 5 Days #5 tablet Referrals: PRIMARY CARE, [Primary Care Provider] - 3-5 Days
[2018-06-18 01:26] LABS: Basophils % (Auto) 0.3 % (0.0-1.8); Eosinophils % (Auto) 0.1 % (0.0-4.3); Hematocrit 48.3 % (35.5-45.6); Hemoglobin 16.3 gm/dl (11.8-15.2); Lymphocytes # (Auto) 1.6 K/mm3 (1.2-5.4); Mean Corpuscular HGB Conc 34 % (32-34); Mean Corpuscular Volume 100 fl (84-94); Monocytes # (Auto) 0.6 K/mm3 (0.0-0.8); Monocytes % (Auto) 4.4 % (0.0-7.3); Platelet Count 242 K/mm3 (140-440); Red Blood Count 4.81 M/mm3 (3.65-5.03); Red Cell Distribution Width 14.3 % (13.2-15.2)
[2018-06-18 01:39] LABS: Albumin 3.9 g/dL (3.9-5); Calcium 8.9 mg/dL (8.4-10.2)
--- NOTE | 2018-06-18 01:42 | Cat Scan Report ---
PROCEDURE: CT HEAD/BRAIN WO CON TECHNIQUE: Routine axial imaging was obtained of the brain without IV contrast. HISTORY: Seizure COMPARISONS: 04/25/2018 FINDINGS: There is no evidence of acute stroke or hemorrhage. The ventricular system is appropriate in size. Th e visualized sinuses are clear. The calvarium appears intact. IMPRESSION: No acute intracranial process.. This document is electronically signed by Nestor Campo MD., June 18 2018 01:40:04 AM ET
[2018-06-18] MEDS ORDERED: NACL 0.9% 1000 ML 1,000 ML IV ONE ×2 (02:37)
--- NOTE | 2018-06-18 03:38 | XRay Report ---
PROCEDURE: XR CHEST 1V AP TECHNIQUE: Chest radiograph single view. HISTORY: dyspnea COMPARISONS: None . FINDINGS: Heart: Normal. Mediastinum/Vessels: Normal. Lungs/Pleural space: Mild vascular congestion. No effusion or pneumothorax. Bony thorax: No acute osseous abnormality. Life support devices: None. IMPRESSION: Mild vascular congestion. No evidence of effusion or pneumothorax. This document is electronically signed by Adriana Langley DO., June 18 2018 03:36:24 AM ET
[2018-06-18 04:30] LABS: Bilirubin,Urine NEG (Negative); Blood,Urine MOD (Negative); Color,Urine Yellow (Yellow); Mucus,Urine FEW /HPF; Urobilinogen,Urine < 2.0 mg/dL (<2.0)
[2018-06-18 04:39] LABS: Amphetamine Screen,Urine PRESUMPTIVE NEGATIVE; Benzodiazepines Screen,Urine PRESUMPTIVE NEGATIVE; Cocaine Screen,Urine PRESUMPTIVE NEGATIVE; Methadone Screen,Urine PRESUMPTIVE NEGATIVE; Opiate Screen,Urine PRESUMPTIVE NEGATIVE
[2018-06-18] MEDS ORDERED: ROCEPHIN/NS 2 GM/100 ML 2 GM/100 ML BAG IV ONE (04:41)
[2018-06-18 04:51] LABS: Cannabinoid Screen,Urine PRESUMPTIVE POSITIVE
[2018-06-18 07:23] VITALS: BP 155/80
== END 2018-06-18 07:31 | disposition home or self-care (01) ==
LOC: ED 00:39
DX: R56.9 Unspecified convulsions (principal); E16.2 Hypoglycemia, unspecified; I10 Essential (primary) hypertension; F17.200 Nicotine dependence, unspecified, uncomplicated; F12.10 Cannabis abuse, uncomplicated
CPT/HCPCS: 36415; 70450; 71045; 80053; 80307; 81001; 82550; 82805; 82962; 85025; 87040; 93005; 93010; 96361; 96365; 96375; 99285; G0480; J0696; J1953; J7030; 80320